=== PATIENT | male | born 2000 | race Caucasian/White ===

== ENCOUNTER → 2021-05-04 00:59 | Outpatient (CLI) | payer OTHER, SELFPAY ==
[2021-05-05 13:55] LABS: SARS-CoV-2 RNA PCR Negative
== END ==
PROVIDERS: Visit Provider Otolaryngology
DX: Z01.812 Encounter for preprocedural laboratory examination (principal); Z20.822 Contact with and (suspected) exposure to COVID-19
CPT/HCPCS: C9803; U0003; U0005

== ENCOUNTER 2021-05-07 00:20 | Day surgery (SDC) | payer OTHER, SELFPAY ==
[2021-04-27 15:58] VITALS: BMI 35.1
--- NOTE | 2021-04-27 16:13 | PC.NURSE ---
Report to the Outpatient Waiting Room, entrance under the green pavilion located off [facility], at time 0815 on date 05/07/21. OR Time: 1015. - You and your visitor will be asked a series of questions to screen for COVID 19 for your protection. - A mask is required within the hospital. - Only one visitor is allowed at this time. Patient visitors will be guided where to wait when not with patient. Preoperative COVID Testing Requirements: No COVID Test needed if: (proof is required; if not received patient will have Rapid Test prior to entry) - Patient has received COVID Vaccine at least 14 days prior to procedure date or - Patient has positive COVID test result within last 90 days of surgery date. COVID Test needed if above criteria is not met If not COVID vaccinated a COVID test must be conducted within 72 hours of surgery and patient is asked to isolate self from time of testing until procedure. You will go to the [facility] for your COVID testing. The [facility] is located at the corner of [address] [facility]. You will only be called if COVID results are positive and your surgeon may reschedule your elective surgery date. Patients may have clear liquids (water, carbonated beverages, clear teas, apple juice) until 3 hours prior to surgery with a maximum of 20 ounces. - No food from midnight until time of surgery - Infants may have breast milk until 4 hours before surgery, infant formula 6 hours prior to surgery. - Children will be allowed to drink immediately following surgery. If applicable, please bring a bottle or sippy cup to assist with drinking. Juice, water, soda, and popsicles are readily available. For infants on formula, please bring formula the day of surgery. Pacifiers are allowed. Take the following medications with a SIP of water the morning of surgery: risperidone Medications to discontinue per physician multivitamins Date to take last dose 05/04/2021 Please no make-up, nail divehi, hairspray, perfume, deodorant, or body powder the day of surgery. No jewelry (including any body piercings) or valuables the day of surgery, leave them at home. Please take a shower or bath the night before, or the morning of, surgery with an antibacterial soap. Wear comfortable, loose fitting clothing. Children are encouraged to wear pajamas. - Jewelry must be removed prior to entering the operating room. Rings and piercings that are not removed may be cut off. - The hospital will not accept responsibility for valuables. - Please leave all valuables, including medications, at home the day of surgery. If you are going home after surgery, a licensed laundry route driver must drive you home. - NO public transportation without another adult. - We recommend that an adult stay with you for 24 hours following discharge. - We also recommend that you do not drive, make important decision, drink alcoholic beverages, or take any drugs that were not prescribed by your health care provider for at least 24 hours after your discharge time. For Pediatric surgeries, we recommend two adults accompany the child home (only one inside the building at this time). Follow any additional instructions given to you from your surgeon. Telephone instructions given to Angélica(mom) and asked if any additional questions and then verbalized understanding. Patient advised to call surgeon office or pre surgery nurse liaison [phone] if any additional questions.
--- NOTE | 2021-05-05 06:41 | PM.HPGS ---
History of Present Illness History of Present Illness Consent: Risks, benefits, and alternatives have been discussed and questions answered. Patient agrees to proceed with procedure. Chief complaint: hypertrophic tonsils and adenoids Narrative: Kirill Croft is a 21 year old male with difficulty sleeping at night a positive sleep study enlarged tonsils and adenoids Review of Systems Review of Systems: All systems reviewed & are unremarkable except as noted in HPI and below PMFSH Social History Social History Smoking status: Never smoker Alcohol intake: never Substance use: never Spiritual care concerns: No Meds Home Medications and Allergies Home Medications Medication Instructions Recorded Confirmed Type multivitamin 1 tablet PO DAILY 03/19/21 04/27/21 History multivitamin with iron 1 tablet PO DAILY 03/19/21 04/27/21 History risperidone 2 mg tablet 2 mg PO BID 03/19/21 04/27/21 History Allergies Allergy/AdvReac Type Severity Reaction Status Date / Time No Known Allergies Allergy Verified 03/19/21 10:11 Exam Narrative: chest clear heart without murmurs abdomen soft enlarged tonsils Assessment and Plan Additional Plan plan tonsillectomy adenoidectomy
[2021-05-07] VITALS (7 sets, daily range): BP systolic 109–138; BP diastolic 76–88; PULSE 88–109; RESP 12–18; TEMP 36.4–36.6; O2SAT 97–100; BMI 33.7
--- NOTE | 2021-05-07 06:17 | WPDHPUPDATE1 ---
History and Physical Update Update Date/Time: 05/07/21 06:17 History and Physical has been reviewed, including an updated exam of the patient. There are NO changes in the patient's condition. Risks, benefits, and alternatives have been discussed and questions answered. Patient agrees to proceed with procedure.
--- NOTE | 2021-05-07 07:26 | WPDANESEPPF ---
Anes - Initial Pre Proc Eval Procedure: Operation Date: 05/07/21 08:45 Proposed Procedures p Tonsillectomy And Adenoidectomy - Jamison Gallegos MD Date/Time: 05/07/21 07:26 Surgeon: Jamison Gallegos MD Pre Op Diagnosis: hypertrophic tonsils and adenoids Patient Data Age: 21 Gender: M Height: 1.78 m Weight: 111 kg Allergies Allergy/AdvReac Type Severity Reaction Status Date / Time No Known Allergies Allergy Verified 03/19/21 10:11 Home Medications Medication Instructions Recorded Confirmed Type multivitamin 1 tablet PO DAILY 03/19/21 04/27/21 History multivitamin with iron 1 tablet PO DAILY 03/19/21 04/27/21 History risperidone 2 mg tablet 2 mg PO BID 03/19/21 04/27/21 History Patient hx anesthesia problems: none Family hx anesthesia problems: none Results Review: All pre-operative results and documents have been reviewed as part of the pre-operative evaluation. PMFSH Past Medical History Medical History Autism Sleep apnea Social History Social History Smoking status: Never smoker Alcohol intake: never Substance use: never Living arrangements: with family Spiritual care concerns: No Anes - Eval Final PreProcedure Day of Procedure 05/07/21 07:26 Patient weight: obese Heart: regular rate and rhythm Lungs: clear to auscultation Airway: Mallampati scale class III Neurological: other (alert) Last oral intake: >/= 8 hours ASA classification: III Emergent: no Anesthetic plan: proceed Anesthesia type and monitoring: general ETT and standard monitoring Results Review: All pre-operative results and documents have been reviewed as part of the pre-operative evaluation. Informed Consent: The patient's anesthetic plan and its attendant risks and benefits were discussed with the patient/family/POA. Questions were solicited and answers provided to the satisfaction of the patient/family/POA.
[2021-05-07] MEDS: LACTATED RINGERS 1,000 ML 30 ML IV CONT (07:45)
[2021-05-07] MEDS: ACETAMINOPHEN 500 MG TABLET 1000 MG PO (07:53)
--- NOTE | 2021-05-07 08:25 | W.PM.PROC2 ---
Procedure Note - Detailed Date of Procedure 05/07/21 Pre-op Diagnosis hypertrophic tonsils and adenoids Post-op Diagnosis same Procedure Performed TONSILLECTOMY/ADENOIDECTOMY SURGERY POSTOPERATIVE DISCHARGE INSTRUCTIONS DR. SAVAGE [facility] This is an information sheet to tell you some things to expect and some things not to expect when you leave the hospital after having Tonsillectomy/Adenoidectomy surgery. Please follow any specific instructions Dr. Savage has given you. 1. Diet You have received IV fluids during hospitalization, which will carry you through the next 24 to 48 hours. It should be no cause for alarm if you are not taking much liquid orally. Encourage yourself to drink liquids, but please avoid acidic liquids and hot liquids/food. Products such as orange juice or lemonade will sting and burn. Popsicles and cool liquids maybe better tolerated than thick liquids such as ice cream. Dairy product will have a tendency to make secretions thick. It is much more important that your child drink fluids than eat food. Do not be alarmed if you eat very little over the next several days. As long as you are drinking liquids, able to produce tears when crying and urinating, then adequate hydration is being maintained. Suggested foods are sherbet, Jell-O, broth, pudding, pureed vegetables, mashed potatoes..etc. No soda, potato chips, or any type of food that may scratch the throat is permitted. Do not expect to eat solid food for 7-8 days. As you begin to feel better, you may advance your diet as tolerated. 2. Nausea Nausea and vomiting can occur during the first evening as a result of having a general anesthetic. Giving pain medication or antibiotics on an empty stomach can make it worse. If you are not able to keep liquids down do not force them. Stop trying the liquids and try again in the morning. If you experience nausea and vomiting at that time, please call Dr. Savage. 3. Pain Typically patients report that the pain builds up for the first few days and is the worst around the 5th day following tonsillectomy. The amount of discomfort usually lessens, then may increase again around day 7-10 after surgery, as some of the whitish tissue covering the tonsillectomy site falls off. After this, there is generally steady improvement with less discomfort. Complete healing of the operative area generally takes several weeks. An ice collar or cold compress to the neck are soothing and may be desired. It is very common for the ears to hurt during the healing process. Ear pain, at times, may be severe. This ear pain is actually referred pain from the healing throat and is general not a result of an ear infection. If there is no drainage from Created 06/17 Rev. 05/18 Created 06/17 Rev. 05/18 Surgeon Jamison Savage MD Anesthesia general Description of Procedure Patient was prepped and draped in usual fashion after induction of anesthesia. The
--- NOTE | 2021-05-07 08:29 | W.PM.PROC2 ---
Procedure Note - Detailed Date of Procedure 05/07/21 Pre-op Diagnosis hypertrophic tonsils and adenoids Post-op Diagnosis same Procedure Performed Tonsillectomy Surgeon Jamison Gallegos MD Anesthesia general Description of Procedure Patient prepped and draped fashion anesthesia the McIvor mouth gag was inserted there was markedly enlarged tonsils removed dissection technique hemostasis obtained electrocautery with red rubber retraction of the palate laryngeal mirror the adenoids inspected minimal adenoids however the turbinates are markedly hypertrophic and the and blue in color these represented the hypertrophic inferior turbinates her nasal polyps
[2021-05-07] MEDS: fentaNYL CITRATE INJ (*CRX) 100 MCG/2 ML VIAL 25 MCG IV PUSH ×2 (08:42→08:48)
[2021-05-07] MEDS: oxyCODONE HCL (*CRX) 5 MG TAB IR PO (09:50)
== END 2021-05-07 09:55 | disposition home or self-care (01) ==
PROVIDERS: Visit Provider Otolaryngology
PROC: (CPT 42826; principal; 2021-05-07 08:45)
DX: J36 Peritonsillar abscess (principal); F84.0 Autistic disorder; G47.30 Sleep apnea, unspecified; E66.9 Obesity, unspecified; Z68.33 Body mass index [BMI] 33.0-33.9, adult
CPT/HCPCS: 42826; 88302; A9270; C9803; J0330; J1100; J2405; J2704; J3010; J7120; U0003; U0005

== ENCOUNTER 2021-05-11 01:00 | Day surgery (SDC) | payer OTHER, SELFPAY ==
[2021-05-11] VITALS (8 sets, daily range): BP systolic 96–127; BP diastolic 62–93; PULSE 104–146; RESP 18–22; TEMP 36.5; O2SAT 100
--- NOTE | 2021-05-11 01:17 | WPDCN ---
Assessment and Plan Assessment and plan (1) Post-tonsillectomy hemorrhage: Code(s): J95.830 - Postprocedural hemorrhage of a respiratory system organ or structure following a respiratory system procedure Status: Acute Assessment and Plan: Plan for OR, control of hemorrhage. Risks discussed in great detail including need for further procedure, and pain, as well as possible further bleeding. HPI Data of Consult Date/Time: 05/11/21 01:17 Primary Care Provider: UNKNOWN,DOCTOR Consult Narrative Narrative: Kirill Croft is a 21 year old male with autism, history of tonsillectomy 4 days ago. Bleeding 2 days ago, stopped spontaneously. Reports bleeding overnight. No labs. PMFSH Past Medical History Medical History Autism Sleep apnea Social History Social History Smoking status: Never smoker Alcohol intake: never Substance use: never Spiritual care concerns: No Meds Home Medications and Allergies Home Medications Medication Instructions Recorded Confirmed Type multivitamin 1 tablet PO DAILY 03/19/21 05/07/21 History multivitamin with iron 1 tablet PO DAILY 03/19/21 05/07/21 History risperidone 2 mg tablet 2 mg PO BID 03/19/21 05/07/21 History hydrocodone-acetaminophen 15 ml PO Q4H PRN #250 ml 05/07/21 Rx Allergies Allergy/AdvReac Type Severity Reaction Status Date / Time No Known Allergies Allergy Verified 05/07/21 07:30 Exam HENMT: Other: Clots through the oral cavity. Inferior right likely source, bright red.
--- NOTE | 2021-05-11 01:25 | ED.GENADULT ---
HPI - General Adult General Chief complaint: Unspecified Stated complaint: bleeding after tonsillectomy Time Seen by Provider: 05/11/21 01:22 History of Present Illness HPI narrative: Patient is a 21-year-old gentleman who presents the emergency department with chief complaint of tonsillectomy bleed. Patient reports that he had a tonsillectomy done by one of our local ENTs and this evening started having bleeding from his mouth. The patient called ENT and Dr. Dyson was aware of the patient. The patient presented to the emergency department and was also seen by ENT in the ER. Patient denies shortness of breath denies chest pain. Related Data Home Medications Medication Instructions Recorded Confirmed multivitamin 1 tablet PO DAILY 03/19/21 05/07/21 multivitamin with iron 1 tablet PO DAILY 03/19/21 05/07/21 risperidone 2 mg tablet 2 mg PO BID 03/19/21 05/07/21 Allergies Allergy/AdvReac Type Severity Reaction Status Date / Time No Known Allergies Allergy Verified 05/07/21 07:30 Review of Systems Review of Systems: A 10 system review of systems was completed on the patient and is negative except for what is stated in the HPI. Nursing and ancillary documentation was reviewed. PMFSH Past Medical History Medical History Autism Sleep apnea Social History Social History Smoking status: Never smoker Alcohol intake: never Substance use: never Spiritual care concerns: No Exam Narrative: GENERAL: Well-appearing, well-nourished, and in no acute distress. HEAD: Normocephalic, atraumatic. EYES: PERRLA and EOMI. ENT: Nares clear, no rhinorrhea or epistaxis. Dry membranes moist. NECK: Supple. CHEST: Clear to auscultation. No respiratory distress. HEART: Tachycardic rate and rhythm. No murmur heard. Normal peripheral pulses. ABDOMEN: Soft, nontender, nondistended, normal active bowel sounds. EXTREMITIES: Normal range of motion. No edema. SKIN: Warm, dry, no rash. NEURO: No focal deficits. Alert and oriented x3. PSYCH: Normal mood and affect. Discharge Plan Discharge Clinical Impression: Post-tonsillectomy hemorrhage Patient Disposition: Still a Patient Condition: Stable Prescriptions: No Action risperidone 2 mg tablet 2 mg PO BID RF: 0 multivitamin Tablet 1 tablet PO DAILY RF: 0 multivitamin with iron [Daily Multiple Vitamins/Iron] Tablet 1 tablet PO DAILY RF: 0 hydrocodone-acetaminophen 7.5-325 mg/15 mL solution 15 ml PO Q4H PRN (Reason: pain) Qty: 250 RF: 0 Follow-up/Referrals: UNKNOWN,DOCTOR [Primary Care Provider] - Time of Disposition: 01:28
--- NOTE | 2021-05-11 01:29 | P.HP_ITS ---
H&P: HPI History of Present Illness Date/Time: 05/11/21 01:29 History of post tonsillectomy hemorrhage. Plan for OR for control of hemorrhage. Chief Complaint: Post tonsillectomy hemorrhage. [facility] Past Medical History Medical History Autism Sleep apnea Social History Social History Smoking status: Never smoker Alcohol intake: never Substance use: never Spiritual care concerns: No Meds Home Medications and Allergies Home Medications Medication Instructions Recorded Confirmed Type multivitamin 1 tablet PO DAILY 03/19/21 05/07/21 History multivitamin with iron 1 tablet PO DAILY 03/19/21 05/07/21 History risperidone 2 mg tablet 2 mg PO BID 03/19/21 05/07/21 History hydrocodone-acetaminophen 15 ml PO Q4H PRN #250 ml 05/07/21 Rx Allergies Allergy/AdvReac Type Severity Reaction Status Date / Time No Known Allergies Allergy Verified 05/07/21 07:30 Assessment and Plan Assessment and plan (1) Post-tonsillectomy hemorrhage: Code(s): J95.830 - Postprocedural hemorrhage of a respiratory system organ or structure following a respiratory system procedure Status: Acute Assessment and Plan: Plan is for OR for control of hemorrhage. Risks and benefits discussed in great details.
[2021-05-11] MEDS: LACTATED RINGERS 1,000 ML 999 ML (01:56)
--- NOTE | 2021-05-11 02:03 | WPDANESEPP ---
Anes - Eval Pre Procedure Procedure: Operation Date: 05/11/21 02:30 Proposed Procedures p Post Op Tonsil Bleed - Azeem Dyson MD Date/Time: 05/11/21 02:03 Pre Op Diagnosis: bleeding after tonsillectomy Patient Data Age: 21 Gender: M Height: Weight: Allergies Allergy/AdvReac Type Severity Reaction Status Date / Time No Known Allergies Allergy Verified 05/07/21 07:30 Home Medications Medication Instructions Recorded Confirmed Type multivitamin 1 tablet PO DAILY 03/19/21 05/07/21 History multivitamin with iron 1 tablet PO DAILY 03/19/21 05/07/21 History risperidone 2 mg tablet 2 mg PO BID 03/19/21 05/07/21 History hydrocodone-acetaminophen 15 ml PO Q4H PRN #250 ml 05/07/21 Rx Patient hx anesthesia problems: none Family hx anesthesia problems: none Results Review: All pre-operative results and documents have been reviewed as part of the pre-operative evaluation. PMFSH Past Medical History Medical History Autism Sleep apnea Social History Social History Smoking status: Never smoker Alcohol intake: never Substance use: never Spiritual care concerns: No Exam Day of Procedure 05/11/21 02:03
--- NOTE | 2021-05-11 02:04 | WPDHPUPDATE1 ---
History and Physical Update Update Date/Time: 05/11/21 02:04 History and Physical has been reviewed, including an updated exam of the patient. There are NO changes in the patient's condition. Risks, benefits, and alternatives have been discussed and questions answered. Patient agrees to proceed with procedure.
[2021-05-11 02:07] LABS: Basophils Absolute Auto 0.1 K/mm3 (0.0-0.1); Basophils Percent Auto 0.4 % (0.2-1.2); Eosinophils Absolute Auto 0.1 K/mm3 (0-0.3); Eosinophils Percent Auto 0.4 % (0-4.4); Hematocrit 36.6 % (42.0-52.0); Hemoglobin 11.5 g/dL (14.0-18.0); Immature Granulocyte Absolute 0.28 K/mm3 (0.00-0.031); Immature Granulocyte Percent A 1.1 % (0-0.5); Lymphocytes Absolute Auto 2.47 K/mm3 (0.9-3.2); Lymphocytes Percent Auto 9.8 % (18.3-44.2); Mean Corpuscular HGB Conc 31.4 g/dl (32-36); Mean Corpuscular Hemoglobin 24.7 pg (26-34); Mean Corpuscular Volume 78.5 fl (80-100); Mean Platelet Volume 10.5 fl (7.4-10.4); Monocytes Absolute Auto 1.3 K/mm3 (0.1-0.6); Monocytes Percent Auto 5.3 % (2.6-8.5); Neutrophils Absolute Auto 20.9 K/mm3 (1.3-6.7); Platelet Count Result 374 k/mm3 (150-375); Red Blood Count 4.66 M/mm3 (4.6-6.20); Red Cell Distribution Width 17.3 % (11.5-14.5); White Blood Count 25.2 K/mm3 (4.5-10.0)
[2021-05-11] MEDS: LACTATED RINGERS 1,000 ML 30 ML IV CONT (02:30)
--- NOTE | 2021-05-11 03:29 | P.OP_ITS ---
Procedure Note - Detailed Date of Procedure 05/11/21 Pre-op Diagnosis Post tonsillectomy hemorrhage Post-op Diagnosis same Procedure Performed Control of hemorrhage Surgeon Azeem Dyson MD Anesthesia general Indications See above Findings Bleeding from the bilateral fossa right worse than left in terms of clot burden left was actually bleeding more briskly. Significant clot burden the patient's stomach suctioned with OG patient also vomited several times during the procedure airway secure no aspiration. Description of Procedure Patient correctly identified consent verified in preop patient brought to OR time-out performed. General anesthesia induced endotracheal tube secured the patient's airway with no difficulty. Patient prepped and draped. Second time- out performed. McIvor mouth gag inserted to reveal bilateral postoperative tonsillar fossa with the aforementioned findings noted clot suction to bleeding noted from the left small vessel right oozing inferiorly all this was controlled with suction Bovie electrocautery at setting of 15 patient would vomit several times after the area was secured copious amounts of clot suctioned out OG dropped copious amounts of clot suctioned out patient vomited again this was all suctioned the patient is stop vomiting before the airway was ever before the ET tube was ever removed. I performed all dictated portions of the procedure blood loss for my portion perhaps 5-20. Care the patient turned over to Anesthesiology. I performed all dictated portions of the procedure. Estimated Blood Loss 20 Drains No Packing No Pathology none sent Complications No immediate complications Condition stable Disposition PACU
[2021-05-11] MEDS: fentaNYL CITRATE INJ (*CRX) 100 MCG/2 ML VIAL 25 MCG IV PUSH ×2 (03:37→03:43)
== END 2021-05-11 04:52 | disposition home or self-care (01) ==
LOC: ANHED 01:35 → ANHSURGERY 01:36
PROVIDERS: Emergency Provider Emergency Medicine; Visit Provider Otolaryngology
PROC: (CPT 42960; principal; 2021-05-11 02:30)
DX: J95.830 Postprocedural hemorrhage of a respiratory system organ or structure following a respiratory system procedure (principal); Y83.8 Other surgical procedures as the cause of abnormal reaction of the patient, or of later complication, without mention of misadventure at the time of the procedure; F84.0 Autistic disorder; G47.30 Sleep apnea, unspecified
CPT/HCPCS: 42960; 36415; 85025; 99285; J0330; J1100; J2250; J2405; J2704; J3010; J7120

== ENCOUNTER 2021-11-12 09:51 | Outpatient (CLI) | payer BC, SELFPAY ==
--- NOTE | ~2021-11-12 | CT_ITS ---
EXAMINATION: CT sinus wo con DATE: 11/12/2021 10:10 INDICATION: Nasal polyps. Chronic sinusitis. Mild breathing. TECHNIQUE: Computed tomography (CT) of the paranasal sinuses was performed without contrast. Iterativ e reconstruction technique was employed. Exam dose: 308.46 mGy-cm total exam DLP. COMPARISON: None FINDINGS: There is rightward deviation of the nasal septum. There is very prominent soft tissue swell ing of the nasal turbinates bilaterally, especially the middle nasal turbinates, with extensive opaci fication of the middle meatus and complete opacification of both ostiomeatal units. There is complete opacification of the right frontal sinus, moderate patchy opacification of the left frontal sinus, extensive opacification of the ethmoid air cells and near opacification of the maxill cathy sinuses. There is virtually complete opacification of the sphenoid sinuses. The mastoid air cells are normally developed and aerated bilaterally. IMPRESSION: Complete opacification of the ostiomeatal units Prominent bilateral middle meatus opacification, severe soft tissue swelling of the nasal turbinates, especially the middle nasal turbinates Extensive opacification of the paranasal sinuses bilaterally Reviewed, dictated and finalized at [facility]. Reviewed, dictated and finalized at [facility].
== END 2021-11-12 09:52 | disposition home or self-care (01) ==
LOC: ANHIMG 09:52
PROVIDERS: Visit Provider Otolaryngology
DX: J30.9 Allergic rhinitis, unspecified (principal); J32.9 Chronic sinusitis, unspecified; J34.2 Deviated nasal septum; J33.9 Nasal polyp, unspecified; J34.3 Hypertrophy of nasal turbinates; J34.89 Other specified disorders of nose and nasal sinuses
CPT/HCPCS: 70486

== ENCOUNTER 2022-01-05 15:06 | Outpatient (CLI) | payer BC, SELFPAY ==
[2022-01-05 15:25] LABS: Hematocrit 46.8 % (40.0-54.0); Hemoglobin 15.5 g/dL (14.0-18.0)
== END 2022-01-05 15:07 | disposition home or self-care (01) ==
LOC: CHSLAB 15:10
PROVIDERS: Visit Provider Anesthesiology
DX: D64.9 Anemia, unspecified (principal)
CPT/HCPCS: 36415; 85014; 85018

== ENCOUNTER 2022-01-08 00:48 | Day surgery (SDC) | payer BC, SELFPAY ==
[2022-01-01 13:37] VITALS: BMI 32.8
--- NOTE | 2022-01-01 13:45 | PC.NURSE ---
Report to the Outpatient Waiting Room, entrance under the green pavilion located off [facility], at time 0615_ on date 01/08/22_. OR Time: 0815_. - You and your visitor will be asked to self-screen and do not enter if you have any COVID symptoms. - Only one visitor and NO children visitors are allowed at this time. - The patient visitor is requested to leave or wait in car when not with patient due to restrictions. - A mask is required within the hospital. Patients may have clear liquids (water, carbonated beverages, clear teas, apple juice) until 3 hours prior to surgery with a maximum of 20 ounces. - No food from midnight until time of surgery - Infants may have breast milk until 4 hours before surgery, formula 6 hours prior to surgery. - Children will be allowed to drink immediately following surgery. If applicable, please bring a bottle or sippy cup to assist with drinking. Juice, water, soda, and popsicles are readily available. For infants on formula, please bring formula the day of surgery. Pacifiers are allowed. Take the following medications with a SIP of water the morning of surgery: ___PREDNISONE, RISPERIDOL Medications to discontinue per physician VITAMIN, IRON Date to take last dose 01/05/22 Please no make-up, nail turkish, hairspray, perfume, deodorant, or body powder the day of surgery. No jewelry (including any body piercings) or valuables the day of surgery, leave them at home. Please take a shower or bath the night before, or the morning of, surgery with an antibacterial soap. Wear comfortable, loose fitting clothing. Children are encouraged to wear pajamas. - Jewelry must be removed prior to entering the operating room. Rings and piercings that are not removed may be cut off. - The hospital will not accept responsibility for valuables. - Please leave all valuables, including medications, at home the day of surgery. If you are going home after surgery, a licensed national van truck driver must drive you home. - NO public transportation without another adult. - We recommend that an adult stay with you for 24 hours following discharge. - We also recommend that you do not drive, make important decision, drink alcoholic beverages, or take any drugs that were not prescribed by your health care provider for at least 24 hours after your discharge time. For Pediatric surgeries, we recommend two adults accompany the child home (only one inside the building at this time). Follow any additional instructions given to you from your surgeon. If you or anyone in your household have experienced Covid symptoms in the past week, please notify your surgeon or the nurse liaison at the phone number below for possible testing. Telephone instructions given to __MOTHER__and asked if any additional questions and then verbalized understanding. Patient advised to call surgeon office or pre surgery nurse liaison [phone] if any additional questions.
--- NOTE | 2022-01-01 13:56 | PC.NURSE ---
MOTHER STATES PT CURRENTLY TAKING ANTIBIOTICS FOR WISDOM TOOTH INFECTION, LAST DOSE 01/02/22. STATES SHE SPOKE WITH DR. CARLTON OFFICE, HE IS AWARE AND OK TO PROCEED.
--- NOTE | 2022-01-07 07:41 | PM.IMHP ---
H&P: HPI History of Present Illness Date/Time: 01/07/22 07:41 Chief Complaint: Nasal obstruction nasal congestion septal per septal deviation turbinate hypertrophy nasal polyps chronic sinusitis Narrative: planned surgical procedure Review of Systems Review of Systems: All systems reviewed & are unremarkable except as noted in HPI and below PMFSH Past Medical History Medical History Autism Sleep apnea Social History Social History Smoking status: Never smoker Second hand tobacco smoke exposure: No Alcohol intake: never Substance use: never Spiritual care concerns: No Meds Home Medications and Allergies Home Medications Medication Instructions Recorded Confirmed Type multivitamin with iron (Daily 1 tablet PO DAILY 03/19/21 01/01/22 History Multiple Vitamins with Iron tablet) risperidone 2 mg tablet 2 mg PO BID 03/19/21 01/01/22 History fluticasone propionate 93 See Rx Instructions .Route 12/28/21 01/01/22 Rx mcg/actuation breath activated .COMPLEX #16 grams aerosol (Xhance) prednisone 10 mg tablet 10 mg PO DAILY #7 tabs 12/31/21 01/01/22 Rx cetirizine 10 mg capsule (Zyrtec) 10 mg PO DAILY 01/01/22 01/01/22 History ferrous sulfate 325 mg (65 mg 325 mg PO DAILY 01/01/22 01/01/22 History iron) tablet Allergies Allergy/AdvReac Type Severity Reaction Status Date / Time No Known Allergies Allergy Verified 01/01/22 13:34 Exam Narrative: normal ENT exam septal deviation turbinate hypertrophy nasal polyps all obviously visible Assessment and Plan Assessment and plan (1) Chronic sinusitis: Code(s): J32.9 - Chronic sinusitis, unspecified Status: Acute Assessment and Plan: plan OR for image guided bilateral maxillary antrostomies with tissue removal total ethmoidectomies frontal sinusotomies sphenoidotomies, endoscopic assisted septoplasty, inferior turbinate submucosal reduction with outfracture.? risks discussed including bleeding infection damage to surrounding structures CSF leak brain damage brain blindness change in vision septal perforation failure to resolve symptoms need for aggressive and/or prolonged medical treatment for the aggressive nasal polyps. Potential need for referral to Allergy immunology for Dupixent if patient fails. Mother voiced understanding and agreed. (2) Nasal polyps: Code(s): J33.9 - Nasal polyp, unspecified Status: Acute (3) Hypertrophy of both inferior nasal turbinates: Code(s): J34.3 - Hypertrophy of nasal turbinates Status: Acute (4) Nasal septal deviation: Code(s): J34.2 - Deviated nasal septum Status: Acute (5) Multiple nasal polyps: Code(s): J33.9 - Nasal polyp, unspecified Status: Acute
[2022-01-08] VITALS (7 sets, daily range): BP systolic 129–153; BP diastolic 85–100; PULSE 88–101; RESP 16–20; TEMP 36.4–36.5; O2SAT 99–100
[2022-01-08] MEDS: ACETAMINOPHEN 500 MG TABLET 1000 MG PO (06:49)
[2022-01-08] MEDS: LACTATED RINGERS 1,000 ML 30 ML IV CONT ×2 (07:06→12:24)
--- NOTE | 2022-01-08 07:09 | WPDHPUPDATE1 ---
History and Physical Update Update Date/Time: 01/08/22 07:09 History and Physical has been reviewed, including an updated exam of the patient. There are NO changes in the patient's condition. Risks, benefits, and alternatives have been discussed and questions answered. Patient agrees to proceed with procedure.
--- NOTE | 2022-01-08 07:26 | WPDANESEPPF ---
Anes - Initial Pre Proc Eval Procedure: Operation Date: 01/08/22 08:15 Proposed Procedures p Image Guided Bilateral Maxillary Antrostomy with Tissue Removal, Total Ethmoidectomy, Frontal Sinusotomy, Bilateral Sphenoidotomy, Bilateral Inferior Turbinectomy with Outfracture - Azeem Dyson MD s Endoscopic Septoplasty - Azeem Dyson MD Date/Time: 01/08/22 07:26 Surgeon: Azeem Dyson MD Pre Op Diagnosis: chronic sinusitis Patient Data Age: 21 Gender: M Height: 1.83 m Weight: 110 kg Last Vital Signs Temp 36.4 C 01/08/22 07:06 Pulse 90 01/08/22 07:06 Resp 16 01/08/22 07:06 BP 129/91 H 01/08/22 07:06 Pulse Ox 100 01/08/22 07:06 O2 Del Method Room Air 01/08/22 07:06 Allergies Allergy/AdvReac Type Severity Reaction Status Date / Time No Known Allergies Allergy Verified 01/08/22 06:43 Home Medications Medication Instructions Recorded Confirmed Type multivitamin with iron (Daily 1 tablet PO DAILY 03/19/21 01/08/22 History Multiple Vitamins with Iron tablet) risperidone 2 mg tablet 2 mg PO BID 03/19/21 01/08/22 History fluticasone propionate 93 See Rx Instructions .Route 12/28/21 01/08/22 Rx mcg/actuation breath activated .COMPLEX #16 grams aerosol (Xhance) cetirizine 10 mg capsule (Zyrtec) 10 mg PO DAILY 01/01/22 01/08/22 History ferrous sulfate 325 mg (65 mg 325 mg PO DAILY 01/01/22 01/08/22 History iron) tablet prednisone 10 mg tablet 10 mg PO DAILY #2 tabs 01/07/22 Rx amoxicillin 500 mg capsule mg 01/08/22 History Patient hx anesthesia problems: none Family hx anesthesia problems: none Results Review: All pre-operative results and documents have been reviewed as part of the pre-operative evaluation. [facility] Past Medical History Medical History Autism Sleep apnea Surgical History Surgical History (Updated 01/08/22 @ 07:26 by Dagoberto Hernandez MD) H/O adenoidectomy Social History Social History Smoking status: Never smoker Second hand tobacco smoke exposure: No Alcohol intake: never Substance use: never Living arrangements: with family Spiritual care concerns: No Anes - Eval Final PreProcedure Day of Procedure 01/08/22 07:26 Patient weight: obese Heart: regular rate and rhythm Lungs: clear to auscultation Airway: Mallampati scale class III Neurological: alert and oriented Last oral intake: >/= 8 hours ASA classification: III Emergent: no Anesthetic plan: proceed Anesthesia type and monitoring: general ETT and standard monitoring Results Review: All pre-operative results and documents have been reviewed as part of the pre-operative evaluation. Informed Consent: The patient's anesthetic plan and its attendant risks and benefits were discussed with the patient/family/POA. Questions were solicited and answers provided to the satisfaction of the patient/family/POA.
[2022-01-08] MEDS: ceFAZolin 2 GM/D5W 50 ML 2 GM/50 ML BAG IVPB (07:59)
[2022-01-08] MEDS: OXYMETAZOLINE HCL 0.05% NAS 15 ML BTL (*BKC) 1 SPRAY NASAL ×2 (08:16→11:13)
[2022-01-08] MEDS: MUPIROCIN 2% OINT 22 GM TUBE 1 APPLIC EACH NARE (10:54)
[2022-01-08] MEDS: LIDO 1%/EPINEPHRINE 1:100,000 10 ML VIAL 20 ML INFILTRATE (12:00)
--- NOTE | 2022-01-08 12:37 | P.OP_ITS ---
Procedure Note - Detailed Date of Procedure 01/08/22 Pre-op Diagnosis chronic sinusitis, nasal polyps, septal deviation, turbinate hypertrophy, nasal obstruction, nasal congestion Post-op Diagnosis Same Procedure Performed Bilateral image guided endoscopic maxillary antrostomies with tissue removal total ethmoidectomies sphenoidotomies both tissue room endoscopic assisted septoplasty nasal polypectomy bilateral middle turbinectomies submucosal inferior turbinate reductions without fractures Surgeon Azeem Dyson MD Anesthesia General Indications See above Findings Polyps excess bleeding unable to perform the frontal sinusotomies because the obstructive bleeding. Septum was severely deviated no concomitant perforations adequate hemostasis at the end the case. Description of Procedure Patient identified consent verified. Patient brought operating room. Time-out performed. General anesthesia induced. Endotracheal tube secured airway taped left lower lip. Patient prepped and draped 2nd time-out performed. Image guidance initiated and confirmed. Afrin-soaked pledgets placed in bilateral nasal passages allowed to sit for 5 minutes. Afrin-soaked pledgets removed image guidance utilized throughout the procedure 10 cc 1% local 1 100,000 parts epinephrine epinephrine injected deep into the submucoperichondrial plane of the nasal septum. Aly incision made on the left side. Left nasal septal flap elevated with 7 Spanish suction. Osteotome utilized crust over right-sided nasal septal flap elevated with small perforation. The entire mucosa was incredibly edematous and boggy polyps were located throughout. Polypectomy performed with microdebrider with image guidance. Maxillary antrostomies performed with double ball tip probe backbiter straight through cut and suction copious amounts of fungal debris and purulence were located within total ethmoidectomies performed with image guidance Kerrison Kerrison micro debrider utilized to perform the total ethmoidectomies again fungal debris and purulence located within these air cells. Bleeding along the skull base limited my ability to frontal sinusotomies. The intermittent application of Afrin-soaked pledget we utilized throughout the procedure. Sphenoidotomies performed with image guidance caudal/Skytop 1 Kerrison punch 3 Kerrison punch and sinus sphenoid sinus punch copious amounts of fungal debris and purulence located the bite lateral sphenoid sinuses. Inferior turbinates then reduced in the sub mucosal plane and outfractured with Philadelphia elevator outfractured using Philadelphia elevator. Total blood loss about 500 cc. The middle turbinates removed prior to sinus surgery stumps cauterized with Bovie suction electrocautery. This was done for access and they were completely full of polyps. Garcia splints were then placed Guthrie incision closed with 3 interrupted 5 0 fast gut sutures. Garcia splints were then placed sutured anteriorly using a mattress 3-0 nylon suture. Patient had excess bleeding total of about 500 cc with the bleeding was well controlled and hemostasis was adequate at the end of the case I performed all dictated portions of the procedure. Care the patient given Anesthesiology. Patient taken to PACU without complication. Estimated Blood Loss -500.0 Drains No Packing Yes Pathology None sent Complications No immediate complications Condition Stable Disposition PACU
--- NOTE | 2022-01-08 13:54 | SUR.PHASEII ---
DR. LANE CALLED RE: TAKING BOTH ANTIBIOTICS OR NOT; INSTRUCTED PATIENT TO TAKE BOTH.
== END 2022-01-08 13:53 | disposition home or self-care (01) ==
PROVIDERS: Visit Provider Otolaryngology
PROC: (CPT 31267; principal; 2022-01-08 08:15)
PROC: (CPT 30520; 2022-01-08 08:15)
DX: J32.9 Chronic sinusitis, unspecified (principal); J33.9 Nasal polyp, unspecified; J34.3 Hypertrophy of nasal turbinates; J34.2 Deviated nasal septum; R09.81 Nasal congestion; F84.0 Autistic disorder; G47.30 Sleep apnea, unspecified
CPT/HCPCS: 31267; 61782; 30520; 30999; 31257; A9270; J0330; J0690; J1100; J1170; J2250; J2405; J2704; J2765; J3010; J7120

== ENCOUNTER 2022-09-04 09:11 | Emergency (ER) | payer BC, SELFPAY ==
[2022-09-04 09:11] VITALS: BP 148/91; PULSE 120; RESP 20; TEMP 36; O2SAT 97
[2022-09-04 09:22] VITALS: BP 148/91; PULSE 120; RESP 20; TEMP 36; O2SAT 97
--- NOTE | 2022-09-04 09:28 | ED.GENADULT ---
HPI - General Adult General Chief complaint: Eye Problems Stated complaint: left eye irritation Time Seen by Provider: 09/04/22 09:22 History of Present Illness HPI narrative: This is a 22-year-old male with autism presenting to ED with a red painful eye. Symptoms started 4 days ago. Mother has been treating it with a salad that she had from a previous eye infection. She saw her primary care physician yesterday and he was given Ocuflox. However the patient's eye is still red and inflamed and painful. Patient has autism and is not able to contribute meaningfully to the interview. Patient does not wear antibiotics Related Data Home Medications Medication Instructions Recorded Confirmed multivitamin with iron (Daily 1 tablet PO DAILY 03/19/21 09/04/22 Multiple Vitamins with Iron tablet) risperidone 2 mg tablet 2 mg PO BID 03/19/21 09/04/22 cetirizine 10 mg capsule (Zyrtec) 10 mg PO DAILY 01/01/22 09/04/22 ferrous sulfate 325 mg (65 mg 325 mg PO DAILY 01/01/22 09/04/22 iron) tablet ciprofloxacin HCl 0.3 % eye drops 2 drp LEFT EYE QID 09/04/22 09/04/22 Allergies Allergy/AdvReac Type Severity Reaction Status Date / Time No Known Allergies Allergy Verified 09/04/22 09:20 [facility] Past Medical History Medical History Autism Sleep apnea Surgical History Surgical History H/O adenoidectomy Social History Social History Smoking status: Never smoker Second hand tobacco smoke exposure: No Alcohol intake: never Substance use: never Lack of Transportation: YES Lack of Food: Never True Current Housing: I Have Housing Concerned About Future Housing: No Difficulty Paying Gas/Electric Bills: No Difficulty Paying for Meds: No Currently Unemployed: No Education: High School Diploma/GED Difficulty w/ Childcare or Family Care: No Living arrangements: with family Spiritual care concerns: No Exam Narrative: APPEARANCE: Patient appears uncomfortable Head: atraumatic. NOSE: Atraumatic NECK: Trachea midline RESPIRATORY: No increased rate of breathing CARDIOVASCULAR: RRR, ABDOMINAL: Non-distended MUSCULOSKELETAl: No obvious deformities NEURO: Alert. Moving 4/4 extremities SKIN:: Warm, dry. Normal color PSYCHIATRIC: Normal affect eye exam: Left eye has significant conjunctival injection. Unable to assess visual acuity due to autism. IOP: L17 R20 Fluerscein stain: Left eye has a corneal over the upper half of the cornea. Course Vital Signs Vital signs: Vital Signs Temperature 96.8 F L 09/04/22 09:11 Pulse Rate 120 H 09/04/22 09:11 Respiratory Rate 20 09/04/22 09:11 Blood Pressure 148/91 H 09/04/22 09:11 Pulse Oximetry 97 09/04/22 09:11 Oxygen Delivery Room Air 09/04/22 09:11 Temperature 96.8 F L 09/04/22 09:22 Pulse Rate 120 H 09/04/22 09:22 Respiratory Rate 20 09/04/22 09:22 Blood Pressure 148/91 H 09/04/22 09:22 Pulse Oximetry 97 09/04/22 09:22 Oxygen Delivery Room Air 09/04/22 09:22 Medical Decision Making [facility] Narrative Medical decision making narrative: -Presentation: 22-year-old autistic male presenting with a red painful eye. -DDX includes but is not limited to: corneal abrasion, corneal ulceration, allergic conjunctivitis. -Co-morbidities complicating care: autism, allergies -Social determinants of health: patient is disabled, lives with his mother -External Chart Review: none -Hx from independent Sources: mother @ bedside -Discussion of Management/Consultants: none -Independent interpretation of studies: eye exam revealed a large corneal abrasion. Rest his eye exam was unremarkable. Unable to test visual acuity due to autism/developmental delay Dx tests considered but not ordered: none -Procedures: none -Interventions: Rosita Smyth
[2022-09-04] MEDS: TETRACAINE HCL 0.5% OPHTH SOLN 4 ML BTL 1 DROP EACH EYE (09:29)
[2022-09-04] MEDS: FLUORESCEIN SOD 1 MG/STRIP EACH EYE (09:30)
[2022-09-04] MEDS: ACETAMINOPHEN 500 MG TABLET 1000 MG PO (09:46)
[2022-09-04] MEDS: IBUPROFEN 400 MG TABLET 800 MG PO (09:47)
== END 2022-09-04 09:55 | disposition home or self-care (01) ==
LOC: CHSED 09:59
PROVIDERS: Emergency Provider Emergency Medicine
DX: S05.00XA Injury of conjunctiva and corneal abrasion without foreign body, unspecified eye, initial encounter (principal); H10.10 Acute atopic conjunctivitis, unspecified eye; X58.XXXA Exposure to other specified factors, initial encounter
CPT/HCPCS: 99283; A9270

== ENCOUNTER 2022-09-16 14:21 | Outpatient (CLI) | payer BC, SELFPAY ==
[2022-09-16 15:00] LABS: Basophils Absolute Auto 0.06 K/mm3 (0.00-0.10); Basophils Percent Auto 0.5 % (0.0-1.0); Eosinophils Absolute Auto 0.15 K/mm3 (0.02-0.50); Eosinophils Percent Auto 1.2 % (1.0-6.0); Hematocrit 45.7 % (40.0-54.0); Immature Granulocyte Absolute 0.08 K/mm3 (0.00-0.00); Immature Granulocyte Percent A 0.6 % (0.0-0.0); Lymphocytes Absolute Auto 2.26 K/mm3 (1.10-4.50); Lymphocytes Percent Auto 17.7 % (18.0-42.0); Mean Corpuscular HGB Conc 32.8 g/dL (32.0-36.0); Mean Corpuscular Hemoglobin 28.5 pg (27.0-31.0); Mean Corpuscular Volume 86.9 fL (78.0-102.0); Mean Platelet Volume 10.5 fl (8.7-11.0); Monocytes Absolute Auto 0.82 K/mm3 (0.10-0.90); Monocytes Percent Auto 6.4 % (2.0-11.0); Neutrophils Absolute Auto 9.4 K/mm3 (1.7-7.2); Neutrophils Percent Auto 73.6 % (50.0-70.0); Platelet Count Result 267 K/mm3 (150-420); Red Blood Count 5.26 M/mm3 (4.70-6.10); Red Cell Distribution Width 13.3 % (11.6-14.4); White Blood Count 12.8 K/mm3 (4.8-10.8)
[2022-09-16 15:50] LABS: Alanine Aminotransferase 29 U/L (16-63); Albumin Level 3.9 g/dL (3.4-5.0); Alkaline Phosphatase 124 U/L (46-116); Anion Gap 10 mmol/L (8-16); Aspartate Amino Transferase 14 U/L (15-37); Bilirubin,Total 0.2 mg/dL (0.00-1.00); Blood Urea Nitrogen 7 mg/dL (7-18); Calcium 9.9 mg/dL (8.5-10.1); Carbon Dioxide 28 mmol/L (21-32); Chloride 101 mmol/L (98-108); Estimated Glomerular Filt Rate > 60; Glucose 80 mg/dL (70-99); Iron 35 ug/dL (65-175); Osmolality Calculated 285 mOsm/kg (285-295); Percent Iron Saturation 11 % (12-57); Potassium 3.9 mmol/L (3.5-5.1); Sodium 139 mmol/L (136-145); Total Protein 8.2 g/dL (6.4-8.2)
== END 2022-09-16 14:22 | disposition home or self-care (01) ==
LOC: CHSLAB 14:25
DX: D50.8 Other iron deficiency anemias (principal); G47.34 Idiopathic sleep related nonobstructive alveolar hypoventilation
CPT/HCPCS: 36415; 80053; 83540; 83550; 85025

== ENCOUNTER 2024-09-15 09:39 | Outpatient (CLI) | payer OTHER, SELFPAY ==
--- OUTSIDE RECORDS SUMMARY | 2024-09-15 09:45 | XMS_ITS | Continuity of Care Document ---
Author Organization [facility] Address [address] [place] [address] Care Team Providers Care Receivable Executive Name Role Phone Naman Villatoro Primary Care Physician [phone] Encounter [facility] [id number] Date(s): 09/14/24 - 09/14/24 [facility] [address] [phone] - Encounter Diagnosis Annual physical examination for person with mental illness completed(Discharge Diagnosis) - 09/14/24 Atypical autism(Discharge Diagnosis) - 09/14/24 Iron deficiency anemia(Discharge Diagnosis) - 09/14/24 Morbid obesity(Discharge Diagnosis) - 09/14/24 Autism spectrum disorder(Discharge Diagnosis) - 09/14/24 Sleep related hypoventilation or hypoxemia(Discharge Diagnosis) - 09/14/24 Allergic rhinitis caused by pollen(Discharge Diagnosis) - 09/14/24 Obstructive sleep apnea syndrome(Discharge Diagnosis) - 09/14/24 Discharge Disposition: Home or Self Care Attending Physician: Naman Villatoro MD Referring Physician: Naman Villatoro MD Encounter Type: Clinic Allergies, Adverse Reactions, Alerts No Known Allergies Assessment and Plan Future Scheduled Tests Laboratory* CBC w/ Diff 09/14/24 * Comprehensive Metabolic Panel 09/14/24 * Lipid Panel 09/14/24 * TSH 09/14/24 * Free T4 09/14/24 * Iron Panel 09/14/24 Medications risperiDONE 1 mg oral tablet See Instructions, TAKE 1 TABLET BY MOUTH DAILY IN THE MORNING WITH 2MG TABLET AND 1 TABLET IN THE AFTERNOON WITH 2MG TABLET FOR A TOTAL OF 3MG TWICE DAILY, # 60 tab, 0 Refill(s), Pharmacy: [facility] Start Date: 07/09/24 Status: Ordered Quantity: 60.0 Unit: Repeat number: 1 risperiDONE 2 mg oral tablet = 1 tab, Oral, BID, # 60 tab, 5 Refill(s), Pharmacy: [facility] Start Date: 09/03/24 Status: Ordered Quantity: 60.0 Unit: Repeat number: 6 Problem List Condition Confirmation Course Effective Dates Status H ealth Status Informant Allergic rhinitis caused by pollen 1 Confirmed 04/03/23 Active Atypical autism 2 Confirmed 08/28/10 Active Autism spectrum disorder 3 Confirmed 08/28/10 Active Iron deficiency anemia 4 Confirmed 04/03/23 Active Morbid obesity Confirmed Active Obstructive sleep apnea syndrome 5 Confirmed 03/02/21 Active Sleep related hypoventilation or hypoxemia 6 Confirmed 03/02/21 Active 1Outside Source Comment: Note: Unchanged 2Outside Source Comment: Note: Unchanged 3Outside Source Comment: Note: Unchanged 4Outside Source Comment: Note: Unchanged 5Outside Source Comment: Note: Unchanged 6Outside Source Comment: Note: Unchanged Diagnosis Diagnosis Type Effective Dates Health Status Clinical Service Informant Iron deficiency anemia Discharge Diagnosis 09/14/24 Autism spectrum disorder Discharge Diagnosis 09/14/24 Sleep related hypoventilation or hypoxemia Discharge Diagnosis 09/14/24 Obstructive sleep apnea syndrome Discharge Diagnosis 09/14/24 Annual physical examination for person with mental illness completed Discharge Diagnosis 09/14/24 Atypical autism Discharge Diagnosis 09/14/24 Morbid obesity Discharge Diagnosis 09/14/24 Allergic rhinitis caused by pollen Discharge Diagnosis 09/14/24 Vital Signs Most recent to oldest [Reference Range]: 1 2 Peripheral Pulse Rate [60-100 bpm] 96 bp m (09/14/24 11:05 AM) Blood Pressure [90-120/60-80 mmHg] 132/9 4mmHg *HI* (09/14/24 11:38 AM) 140/100mmHg *HI* (09/14/24 11:05 AM) Mean Arterial Pressure, Cuff [70-110 mmH g] 107 mmHg (09/14/24 11:38 AM) 113 mmHg *HI* (09/14/24 11:05 AM) Social History Social History Type Response Sex Male Sex Representation Male (finding) Patient Care team information Care Team Personnel Name: Naman Villatoro MD Position: Physician Member Role: Informed Provider Address: [address] [place] [address] Telecom: Insurance Providers Guarantor name: Health Plan Information #: 1 Payer: [employer] Member Number: [id number] Policy Number: NA Group Number: [id number] Payer Identifier: ERICA Health Plan Information #: 2 Payer: [employer] Member Number: [id number] Policy Number: NA Group Number: [id number] Payer Identifier: NA
--- OUTSIDE RECORDS SUMMARY | 2024-09-15 09:45 | XMS_ITS | Clinical Summary ---
Author Organization [facility] [address] Address [address] [facility] [place] [address] Care Team Providers Care Parking Manager Name Role Phone Payam Navarro DO Primary Care Provider [phone] Allergies No known active allergies Medications cholecalciferol, Vitamin D3, (VITAMIN D3) 1,000 unit Capsule Take by mouth daily. Active ascorbic acid, vitamin C, (VITAMIN C) 100 mg Tablet Take 100 mg by mouth daily. Active risperiDONE (RisperDAL) 2 mg tablet TAKE 1 TABLET BY MOUTH TWICE DAILY 60 Tablet 5 01/31/2019 Active Active Problems Problem Noted Date Diagnosed Date Environmental tobacco smoke exposure 12/30/2015 Autistic disorder 12/29/2015 Immunizations Immunization Administration Dates Next Due (INFANRIX)(6 WKS-6 YRS) DIPT HERIA, TETANUS TOXOIDS, AND ACCELLULAR PERTUSSIS VACCINE (DTAP), 0.5 ML IM 02/13/2004,11/26/1999,1998,1998,1998 (IPOL)(6 WKS AND UP) POLIOVI EVA VACCINE, INACTIVATED (IPV), 3 DOSE, SUBCUT OR IM 1998,1998,1998,1998 (M-M-R II/PRIORIX)(12 MO UP) MEASLES, MUMPS AND RUBELLA VIRUS VACCINE, 0.5 ML IM/SUBCUT 02/13/2004,06/19/1999 (VARIVAX)(12 MOS UP)VARICELL A VIRUS VACCINE (PF) 0.5 ML, SUB CUT 10/11/2002 HIB, Unspecified Formulation 11/26/1999, 1998,1998,1998 Hepatitis B Vaccine 1998,1998,1997 Poliovirus Vaccine Live Oral 02/13/2004 Family History Medical History Relation Name Comments Colon Cancer Neg Hx Social History Tobacco Use Types Packs/Day Years Used Date Smoking Tobacco: Passive Smo ke Exposure - Never Smoker Smokeless Tobacco: Never Alcohol Use Standard Drinks/Week Comments No 0 (1 standard drink = 0.6 oz pur e alcohol) Sex and Gender Information Value Date Recorded Sex Assigned at Not on file Legal Sex Male 3:50 PM CDT Gender Identity Not on file Sexual Orientation Not on file Last Filed Vital Signs Vital Sign Reading Time Taken Comments Blood Pressure 120/83 08/07/2018 4:27 PM CDT Pulse 112 08/07/2018 4:27 PM CDT Temperature 35.9 C (96.7 F) 02/14/2018 4:46 PM CDT Respiratory Rate 24 08/07/2018 4:27 PM CDT Oxygen Saturation 97% 08/07/2018 4:27 PM CDT Inhaled Oxygen Concentration - - Weight 91.6 kg (202 lb) 08/07/2018 4:27 PM CDT Height 174 cm (5' 8.5 ) 08/07/2018 4:27 PM CDT Body Mass Index 30.27 08/07/2018 4:27 PM CDT Plan of Treatment Health Maintenance Due Date Last Done Comments HPV VACCINES (1 - Male 3-dos e series) 2013 DTAP/TDAP/TD VACCINES (7 - T d or Tdap) 03/02/2023 03/02/2013, 02/13/2004, 11/26/1999, Additional history exists INFLUENZA VACCINE (#1) 2023 05/14/2015 Preventative Visit- Commercial 05/02/2024 HEPATITIS B VACCINES Completed 1998, 1998, 1998 Insurance [facility] [id number] Care Teams Parking Manager Relationship Specialty Start Date End Date Payam Navarro DO [address] [place] [address] [place] [id number] PCP - General Family Practice 12/29/15
--- OUTSIDE RECORDS SUMMARY | 2024-09-15 09:45 | XMS_ITS | Clinical Summary ---
Author Organization [facility] Address [address] [place] [address] Care Team Providers Care Drum Operator Name Role Phone Naman Villatoro MD Primary Care Provider Source Comments [facility],non-owned Affiliates and Associated Physician Practices is amultiple site organization consisting of ambulatory clinics and hospital sitesin [place], [place], [place] and [place]. This disclosure is being madepursuant to the Care Everywhere program and may not contain all information available regarding this patient. Last updated 18.[facility] Allergies No known active allergies Medications * This document contains information received from the source organization and may not represent a complete record from that organization. * Be aware that medications may not be up to date on this document. Alwaysverify current medications with the patient. 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 Due to his size and aggressive behaviors his family no longer feels comfortable caring for him. Vivian requires residential placement in a facility equipped to meet his needs. Inbound Call Center Agent is involved and their input is appreciated. He continues to do well from a medical standpoint. Plan: - Will d/c to residential facility today Assessment & Plan (05/14/2015 7:47 AM RAMP SERVICE AGENT): Assessment: Vivian is admitted due to increased aggression at home. Due to his size and aggressive behaviors his family no longer feels comfortable caring for him. Vivian requires residential placement in a facility equipped to meet his needs. He does not meet criteria for inpatient psychiatric admission. Inbound Call Center Agent is involved and their input is appreciated. He otherwise continues to do well from a medical standpoint. All issues are behavioral and not appropriately dealt with by inpatient medical admission. Plan: - Await word on placement opportunities - Attending physician Dr Menendez has reached out to hospital administration for assistance as Vivian has no need of medical admission but identification of an appropriate facility has been difficult Assessment & Plan (05/13/2015 10:27 AM RAMP SERVICE AGENT): Assessment: Vivian is admitted due to increased aggression at home. Due to his size and aggressive behaviors his family no longer feels comfortable caring for him. Vivian requires residential placement in a facility equipped to meet his needs. He does not meet criteria for inpatient psychiatric admission. Inbound Call Center Agent is involved and their input is appreciated. He otherwise continues to do well from a medical standpoint. All issues are behavioral and not appropriately dealt with by inpatient medical admission. Plan: - Await word on placement opportunities - Attending physician Dr Menendez has reached out to hospital administration for assistance as Vivian has no need of medical admission but identification of an appropriate facility has been difficult Assessment & Plan (05/13/2015 10:20 AM RAMP SERVICE AGENT): Assessment: Vivian is admitted due to increased aggression at home. Due to his size and aggressive behaviors, Vivian requires residential housing. He does not meet criteria for inpatient psychiatric admission. Inbound Call Center Agent is involved and their input is appreciated. Plan: - Await word on placement opportunities - Attending physician Dr Menendez has reached out to [facility] administration for assistance Assessment & Plan (05/12/2015 3:36 PM RAMP SERVICE AGENT): Assessment: Vivian is admitted due to increased aggression at home. Due to his size and aggressive behaviors, Vivian requires residential housing. He does not meet criteria for inpatient psychiatric admission. Inbound Call Center Agent is involved and their input is appreciated. Plan: - Await word on placement opportunities - I have reached out to [facility] administration for assistance Assessment & Plan (05/12/2015 9:55 AM RAMP SERVICE AGENT): Assessment: 15 yo male with known autism spectrum disorder presents with increased aggression. Family fearful for safety at home and patient unable to be admitted to inpatient psychiatric facility or to [facility] at this time (please see notes from Yoselin George). Patient admitted to [facility] due to safety concerns of family and no available facility to offer adequate patient care available. Plan: - Appreciate Inbound Call Center Agent consult - Appreciate Psychiatry consult Assessment & Plan (05/11/2015 3:14 PM RAMP SERVICE AGENT): Assessment: 15 yo male with known autism spectrum disorder presents with increased aggression. Family fearful for safety at home and patient unable to be admitted to inpatient psychiatric facility or to [facility] at this time (please see notes from Yoselin George). Patient admitted to [facility] due to safety concerns of family and no available facility to offer adequate patient care available. Plan: - Will touch base with Central Intake today to discuss further placement options - Appreciate Inbound Call Center Agent consult - Appreciate Psychiatry consult Assessment & Plan (05/11/2015 1:09 PM RAMP SERVICE AGENT): Assessment: 15 yo male with known autism spectrum disorder presents with increased aggression. Family fearful for safety at home and patient unable to be admitted to inpatient psychiatric facility or to [facility] at this time (please see notes from Yoselin George). Patient admitted to [facility] due to safety concerns of family and no available facility to offer adequate patient care available. Plan: - Will touch base with Central Intake today to discuss further placement options - Appreciate Inbound Call Center Agent consult - Appreciate Psychiatry consult Assessment & Plan (05/10/2015 1:37 PM RAMP SERVICE AGENT): Assessment: 15 yo male with known autism spectrum disorder presents with increased aggression. Family fearful for safety at home and patient unable to be admitted to inpatient psychiatric facility or to [facility] at this time (please see notes from Yoselin George). Patient admitted to [facility] overnight due to safety concerns of family and no available facility to offer adequate patient care available. Plan: - Will touch base with Central Intake today to discuss further placement options - Appreciate Inbound Call Center Agent consult - Appreciate Psychiatry consult Assessment & Plan (05/10/2015 12:21 PM RAMP SERVICE AGENT): Assessment: 15 yo male with known autism spectrum disorder presents with increased aggression. Family fearful for safety at home and patient unable to be admitted to inpatient psychiatric facility or to [facility] at this time (please see notes from Yoselin George). Patient admitted to [facility] overnight due to safety concerns of family and no available facility to offer adequate patient care available. Plan: - Will touch base with Central Intake today to discuss further placement options - Appreciate Inbound Call Center Agent consult - Appreciate Psychiatry consult Assessment & Plan (05/09/2015 8:35 PM RAMP SERVICE AGENT): Assessment: 15 yo male with known autism spectrum disorder presents with increased aggression. Family fearful for safety at home and patient unable to be admitted to inpatient psychiatric facility or to [facility] at this time (please see notes from Yoselin George). Patient admitted to [facility] overnight due to safety concerns of family and no available facility to offer adequate patient care available. Plan: - Rain Mendoza (Social Work) to be in touch with [facility] to clarify insurance issues as well as what medical assessments are needed for placement - Appreciate Psychiatry consult Assessment & Plan (05/09/2015 11:57 AM RAMP SERVICE AGENT): Assessment: 15 yo male with known autism spectrum disorder presents with increased aggression. Family fearful for safety at home and patient unable to be admitted to inpatient psychiatric facility or to [facility] at this time (please see notes from Yoselin George). Patient admitted to [facility] overnight due to safety concerns of family and no available facility to offer adequate patient care available. Plan: - Rain Mendoza (Social Work) to be in touch with [facility] to clarify insurance issues as well as what medical assessments are needed for placement - Psychiatry consult Assessment & Plan (05/08/2015 10:07 PM RAMP SERVICE AGENT): Assessment: 15 yo male with known autism spectrum disorder presents with increased aggression. Family fearful for safety at home and patient unable to be admitted to inpatient psychiatric facility or to [facility] residential [facility] at this time (please see notes from Yoselin George). Patient admitted to [facility] overnight due to safety concerns of family and no available facility to offer adequate patient care available. Plan: - Call [facility] in the morning ([phone]) to ask for clarification on requirement for psychiatric evaluation - Consult to psychiatry for evaluation Aggression 05/08/2015 Overview (06/05/2015): SW to continue to find residential placement appropriate to pt's special needs. Assessment & Plan (06/05/2015 5:08 PM RAMP SERVICE AGENT): Assessment: 15 yo non verbal autistic male here for aggressive behavior for the past month. Recent change of medication from abilify to risperidal, and family moved in with maternal grandparents, no other changes in daily routine. Currently no more episodes of aggression. Having difficulty with placement and social work assisting. He is not a candidate to go back home. Psycological Eval and Medical History forms required for placement. Psych would like to increase Risperdal with prns for agitation Plan: - Regular diet - Increase Risperdal 1mg BID - Haloperidol 5mg IM if agitation and/or Zyprexa 5mg IM q6hr prn; Cogentin prn for dystonia - SW consult: Psychological consult ordered and called, no answer; complete medical paperwork and await further placement Assessment & Plan (06/04/2015 2:42 PM RAMP SERVICE AGENT): Assessment: 15 yo non verbal autistic male here for aggressive behavior for the past month. Recent change of medication from abilify to risperidal, and family moved in with maternal grandparents, no other changes in daily routine. Recently admitted for [facility] for similar behavior but was discharged two weeks ago. Plan: - Regular diet - Continue home Risperidone - Haloperidol IM if agitation - SW consult: pt can be accepted up to 5 long-term care facilities for autistic pts, however, at this time, pt is awaiting acceptance and then funding will be next issue. - Central intake evaluation: will reassess pt this afternoon (pt was asleep during previous CI assessment). - Psych consult for psych placement. Paged/called Dr. Fonseca several times, no response. Assessment & Plan (06/04/2015 4:06 AM RAMP SERVICE AGENT): Assessment: 15 yo non verbal autistic male here for aggressive behavior for the past month. Recent change of medication from abilify to risperidal, and family moved in with maternal grandparents, no other changes in daily routine. Recently admitted for [facility] for similar behavior. Plan: - Admit to [facility] - Regular diet - Risperidone - Haloperidol IM if agitation - SW consult - CI to evaluate Assessment & Plan (05/14/2015 7:46 AM RAMP SERVICE AGENT): Assessment: Vivian has autism spectrum disorder. He is admitted for aggressive behaviors at home prior to admission. He continues to do well with no outbursts during this admission. Plan: - 1 mg risperidone QD - Per Dr Fonseca, for acute aggression can use the following regimens: - Zyprexa 5 mg PO/IM q6h prn OR Haldol 5 mg PO/IM q6h prn and Ativan 1 mg PO/IM/IV q6h prn - Do not give ativan with zyprexa due to risk for hypotension - If giving Haldol, give 1 mg Cogentin PO BID prn for dystonia Assessment & Plan (05/13/2015 10:25 AM RAMP SERVICE AGENT): Assessment: Vivian has autism spectrum disorder. He is admitted for aggressive behaviors at home prior to admission. He continues to do well with no outbursts during this admission. Plan: - 1 mg risperidone QD - Per Dr Fonseca, for acute aggression can use the following regimens: - Zyprexa 5 mg PO/IM q6h prn OR Haldol 5 mg PO/IM q6h prn and Ativan 1 mg PO/IM/IV q6h prn - Do not give ativan with zyprexa due to risk for hypotension - If giving Haldol, give 1 mg Cogentin PO BID prn for dystonia Assessment & Plan (05/13/2015 10:20 AM RAMP SERVICE AGENT): Assessment: Vivian has autism spectrum disorder. He is admitted for aggressive behaviors. He continues to do well with no outbursts during this admission. Plan: - 1 mg risperidone QD - Per Dr Fonseca, for acute aggression can use the following regimens: - Zyprexa 5 mg PO/IM q6h prn OR Haldol 5 mg PO/IM q6h prn and Ativan 1 mg PO/IM/IV q6h prn - Do not give ativan with zyprexa due to risk for hypotension - If giving Haldol, give 1 mg Cogentin PO BID prn for dystonia Assessment & Plan (05/12/2015 3:37 PM RAMP SERVICE AGENT): Assessment: Vivian has autism spectrum disorder. He is admitted for aggressive behaviors. He continues to do well with no outbursts during this admission. Plan: - 1 mg risperidone QD - Per Dr Fonseca, for acute aggression can use the following regimens: - Zyprexa 5 mg PO/IM q6h prn OR Haldol 5 mg PO/IM q6h prn and Ativan 1 mg PO/IM/IV q6h prn - Do not give ativan with zyprexa due to risk for hypotension - If giving Haldol, give 1 mg Cogentin PO BID prn for dystonia Assessment & Plan (05/12/2015 9:55 AM RAMP SERVICE AGENT): Assessment: 15 yo patient with increased aggressive outbursts secondary to autism spectrum disorder. Recently started on risperidone by PCP however mother unsure of dose. 1 mg daily ordered after discussion with patient's PCP (Dr Maldonado) who manages his autism. PRN Risperdone also started for agitation, though patient has been very cooperative in hospital and has not required it. Plan: - 1 mg risperidone QD - Per Dr Fonseca, for acute aggression can use the following regimens: - Zyprexa 5 mg PO/IM q6h prn OR Haldol 5 mg PO/IM q6h prn and Ativan 1 mg PO/IM/IV q6h prn - Do not give ativan with zyprexa due to risk for hypotension - If giving Haldol, give 1 mg Cogentin PO BID prn for dystonia Assessment & Plan (05/11/2015 3:16 PM RAMP SERVICE AGENT): Assessment: 15 yo patient with increased aggressive outbursts secondary to autism spectrum disorder. Recently started on risperidone by PCP however mother unsure of dose. 1 mg daily ordered after discussion with patient's PCP (Dr Maldonado) who manages his autism. PRN Risperdone also started for agitation, though patient has been very cooperative in hospital and has not required it. Plan: - 1 mg risperidone QD - Per Dr Fonseca, for acute aggression can use the following regimens: - Zyprexa 5 mg PO/IM q6h prn OR Haldol 5 mg PO/IM q6h prn and Ativan 1 mg PO/IM/IV q6h prn - Do not give ativan with zyprexa due to risk for hypotension - If giving Haldol, give 1 mg Cogentin PO BID prn for dystonia Assessment & Plan (05/11/2015 1:08 PM RAMP SERVICE AGENT): Assessment: 15 yo patient with increased aggressive outbursts secondary to autism spectrum disorder. Recently started on risperidone by PCP however mother unsure of dose. 1 mg daily ordered after discussion with patient's PCP (Dr Maldonado) who manages his autism. PRN Risperdone also started for agitation, though patient has been very cooperative in hospital and has not required it. Plan: - 1 mg risperidone OD - Per Dr Fonseca, for acute aggression can use the following regimens: - Zyprexa 5 mg PO/IM q6h prn OR Haldol 5 mg PO/IM q6h prn and Ativan 1 mg PO/IM/IV q6h prn - Do not give ativan with zyprexa due to risk for hypotension - If giving Haldol, give 1 mg Cogentin PO BID prn for dystonia Assessment & Plan (05/10/2015 1:37 PM RAMP SERVICE AGENT): Assessment: 15 yo patient with increased aggressive outbursts secondary to autism spectrum disorder. Recently started on risperidone by PCP however mother unsure of dose. 1 mg daily ordered after discussion with patient's PCP (Dr Maldonado) who manages his autism. PRN Risperdone also started for agitation, though patient has been very cooperative in hospital and has not required it. Plan: - 1 mg risperidone OD - Per Dr Fonseca, for acute aggression can use the following regimens: - Zyprexa 5 mg PO/IM q6h prn OR Haldol 5 mg PO/IM q6h prn and Ativan 1 mg PO/IM/IV q6h prn - Do not give ativan with zyprexa due to risk for hypotension - If giving Haldol, give 1 mg Cogentin PO BID prn for dystonia Assessment & Plan (05/10/2015 12:20 PM RAMP SERVICE AGENT): Assessment: 15 yo patient with increased aggressive outbursts secondary to autism spectrum disorder. Recently started on risperidone by PCP however mother unsure of dose. 1 mg daily ordered after discussion with patient's PCP (Dr Maldonado) who manages his autism. PRN Risperdone also started for agitation, though patient has been very cooperative in hospital and has not required it. Plan: - 1 mg risperidone OD - Per Dr Fonseca, for acute aggression can use the following regimens: - Zyprexa 5 mg PO/IM q6h prn OR Haldol 5 mg PO/IM q6h prn and Ativan 1 mg PO/IM/IV q6h prn - Do not give ativan with zyprexa due to risk for hypotension - If giving Haldol, give 1 mg Cogentin PO BID prn for dystonia Assessment & Plan (05/09/2015 8:36 PM RAMP SERVICE AGENT): Assessment: 15 yo patient with increased aggressive outbursts secondary to autism spectrum disorder. Recently started on risperidone by PCP however mother unsure of dose. 1 mg daily ordered after discussion with patient's PCP (Dr Maldonado) who manages his autism. PRN Risperdone also started for agitation, though patient has been very cooperative in hospital and has not required it. Plan: - 1 mg risperidone OD - 5 mg olanzapine PRN for agitation while in hospital (no need to continue as outpatient unless on advice of psychiatry) Assessment & Plan (05/09/2015 11:58 AM RAMP SERVICE AGENT): Assessment: 15 yo patient with increased aggressive outbursts secondary to autism spectrum disorder. Recently started on risperidone by PCP however mother unsure of dose. 1 mg daily ordered after discussion with patient's PCP (Dr Maldonado) who manages his autism. PRN Risperdone also started for agitation, though patient has been very cooperative in hospital and has not required it. Plan: - 1 mg risperidone OD - 5 mg olanzapine PRN for agitation while in hospital (no need to continue as outpatient unless on advice of psychiatry) Assessment & Plan (05/08/2015 10:21 PM RAMP SERVICE AGENT): Assessment: 15 yo patient with increased aggressive outbursts secondary to autism spectrum disorder. Recently started on risperidone by PCP however mother unsure of dose. I spoke with Dr. Ochoa (on-call psychiatrist for Central Intake) who recommended starting at 1 mg BID of risperidone and 5 mg olanzapine PRN for agitation. I also spoke with PCP Dr. Maldonado (Photographer Assistant who manages Ory's ASD) who states the home dose of risperidone was 1 mg OD. I also noted on my exam that patient does not like to be touched and would gently push me away during exam. Plan: - 1 mg risperidone OD - 5 mg olanzapine PRN for agitation while in hospital (no need to continue as outpatient unless on advice of psychiatry) - Avoid physical contact with patient as much as possible during examinations. Prompt patient as much as possible to decrease any anxiety. - Call security if any concerns re: employee, visitor, or patient safety S/P PICC central line placement 03/01/2013 Pain 10/17/2010 Overview (11/06/2010): Through most of admission, posture was at least one leg flexed and minimal movement of R leg, and would not bear weight Likely due to osteopenia and possible compression fractures lumbar spine Pain improved, but not resolved, with Toradol. Attempted naproxen PO, but unable to treat with PO meds due to pt refusal, even with assistance of OT Resulted in Tylenol rectally, which did help with pain PT also worked with pt, which also resulted in some improvement Final decision was made to use Fentanyl patch 25mcg every 72 hours, and there was significant improvement in pt's symptoms, so he was discharged with total of 5 patches Osteopenia 10/17/2010 Overview (11/06/2010): History of very narrow diet choices (chocolate milk, cheezits) Diffuse process Abnormal metaphyses throughout. PTH low, but vit D, Ca, and phos WNL Endocrine consulted; per endocrine recs serum [id number] ordered, and pt will follow up in clinic Assessment & Plan (05/12/2015 9:56 AM RAMP SERVICE AGENT): Assessment: Patient has history of osteopenia with vertebral compression fractures. Admission in 2010 during which he was evaluated by neurology, orthopedics, heme/onc, rheumatology, genetics. No single diagnosis was ever given. He has since transferred his care to [facility] where a bone biopsy was done. Currently not on any medications, mom reports symptoms have improved since puberty. Per psychiatry, hypoparathyroidism has been known to cause mood swings. Calcium level and PTH level check this admission which are both normal. Plan: Follow up with [facility] next month as scheduled Assessment & Plan (05/11/2015 3:16 PM RAMP SERVICE AGENT): Assessment: Patient has history of osteopenia with vertebral compression fractures. Admission in 2010 during which he was evaluated by neurology, orthopedics, heme/onc, rheumatology, genetics. No single diagnosis was ever given. He has since transferred his care to [facility] where a bone biopsy was done. Currently not on any medications, mom reports symptoms have improved since puberty. Per psychiatry, hypoparathyroidism has been known to cause mood swings. Plan: - Calcium normal, PTH pending Assessment & Plan (05/11/2015 1:09 PM RAMP SERVICE AGENT): Assessment: Patient has history of osteopenia with vertebral compression fractures. Admission in 2010 during which he was evaluated by neurology, orthopedics, heme/onc, rheumatology, genetics. No single diagnosis was ever given. He has since transferred his care to [facility] where a bone biopsy was done. Currently not on any medications, mom reports symptoms have improved since puberty. Per psychiatry, hypoparathyroidism has been known to cause mood swings. Plan: - Calcium normal, PTH pending Assessment & Plan (05/10/2015 1:37 PM RAMP SERVICE AGENT): Assessment: Patient has history of osteopenia with vertebral compression fractures. Admission in 2010 during which he was evaluated by neurology, orthopedics, heme/onc, rheumatology, genetics. No single diagnosis was ever given. He has since transferred his care to [facility] where a bone biopsy was done. Currently not on any medications, mom reports symptoms have improved since puberty. Per psychiatry, hypoparathyroidism has been known to cause mood swings. Plan: Obtain total calcium, ionized calcium, and PTH level today Assessment & Plan (05/10/2015 12:22 PM RAMP SERVICE AGENT): Assessment: Patient has history of osteopenia with vertebral compression fractures. Admission in 2010 during which he was evaluated by neurology, orthopedics, heme/onc, rheumatology, genetics. No single diagnosis was ever given. He has since transferred his care to [facility] where a bone biopsy was done. Currently not on any medications, mom reports symptoms have improved since puberty. Per psychiatry, hypoparathyroidism has been known to cause mood swings. Plan: Obtain total calcium, ionized calcium, and PTH level today Assessment & Plan (05/09/2015 8:36 PM RAMP SERVICE AGENT): Assessment: Patient has history of osteopenia with vertebral compression fractures. Admission in 2010 during which he was evaluated by neurology, orthopedics, heme/onc, rheumatology, genetics. No single diagnosis was ever given. He has since transferred his care to [facility] where a bone biopsy was done. Currently not on any medications, mom reports symptoms have improved since puberty. Plan: Will obtain records from [facility] to determine if any intervention or workup necessary during this admission Assessment & Plan (05/09/2015 2:42 PM RAMP SERVICE AGENT): Assessment: Patient has history of osteopenia with vertebral compression fractures. Admission in 2010 during which he was evaluated by neurology, orthopedics, heme/onc, rheumatology, genetics. No single diagnosis was ever given. He has since transferred his care to [facility] where a bone biopsy was done. Currently not on any medications, mom reports symptoms have improved since puberty. Plan: Will obtain records from [facility] to determine if any intervention or workup necessary during this admission Hypoparathyroidism 10/16/2010 Overview (11/06/2010): Decreased PTH, still with normal phos and Ca levels PTH related peptide ordered Etiology unclear Endocrine consulted and will follow up as outpt Microcytosis 10/16/2010 Overview (10/16/2010): Likely due to chronic disease, as CBC is otherwise normal Acute sinusitis 10/12/2010 Overview (11/06/2010): Ethmoid and frontal sinuses show evidence of sinusitis on skeletal survey Not likely related to gait abnormality ENT consulted and involved, will follow up as outpatient Recommend CT sinuses with STEALTH process Tooth fracture 10/09/2010 Overview (11/06/2010): Tooth fractured during sedation. Prior tooth decay present. Root in place, no significant changes Dr. Rodriguez notified and involved but was unable to perform repair Should follow-up with dentist as outpatient for repair Nutritional assessment 10/09/2010 Overview (11/06/2010): Poor nutrition due to food selection and overall poor PO intake Prefers chocolate milk, sometimes ate grilled cheese. Nutrition and OT consulted and were able to help pt eat a more advanced diet, although still not normal for child of his age Continue vitamin supplement at discharge Gait abnormality 10/08/2010 Overview (11/06/2010): Patient with progressive loss of mobility. Started with wide-based gait and c/o hip pain in August that evolved into bilat LE pain and inability to bear weight with preference for a flexed position. No spasticity or muscle wasting noted. No sensory changes reported. Throughout admission, there was very little change in his clinical status, and he was never fully ambulatory. Imaging performed during admission: -Thoracic spine xray: Osteopenia with compression deformities of T11 and T12. -Lumbar spine xray: Diffuse loss of vertebral body height suggesting chronic compression deformities with osteopenia. -Brain MRI normal -MRI spine reveals cystic degenerative changes and ballooning of the intervertebral disc spaces -Whole body bone scan showed asymmetry in the left acetabulum of unknown etiology, but normal spine -Skeletal survey shows diffuse osteopenia with multiple vertebral body compression fractures, at least one lytic lesion involving the sacrum as well as the proximal right humerus and proximal right femur. Interpreted as possible infiltrative bone marrow process. -PET scan unremarkable -All services declined to do any sort of biopsy during admission due to difficulty and lack of utility Consults during admission: -Neurology consulted. Does not appear to be primary neurologic cause -Ortho Onc consulted. Do not see evidence of tumor or lytic process. Does have vertebral and possible disc abnormalities. Widespread osteopenia with abnormal metaphyseal regions. Ortho peds consulted. Agree with widespread osteopenia and metaphyseal changes -Rheumatology consulted; multiple labs drawn and have made recs and have impression that rheumatologic process is not likely based on results -Heme/Onc consulted and have impression that metastatic process is possible but not likely, as there is no known primary tumor. Lab abnormalities can be accounted for based on other clinical aspects of pt's condition. To fully evaluate for any primary tumor, PET scan was suggested as best imaging modality, which was unremarkable, confirming that a metastasis is unlikely the concern. -Genetics involved and have made recs for testing, no genetic syndrome that would account for pt's current gait abnormality. Multiple labs drawn for various services but abnormalities inconsistent with one probable diagnosis: CK not elevated, CRP normal, ESR somewhat elevated (43) Vit D, 25-OH normal LDH, Phos, and uric acid all normal Autoimmune and complement panels done, all normal Parathyroid hormone low TSH/T4 normal CMP showed low alk phos, otherwise normal CBC with microcytosis, otherwise normal; Hgb electrophoresis normal Low iron, but normal transferrin, ferritin, and TIBC IgG elevated, normal IgA and IgM Alpha-2, beta, and gamma globulins all elevated Aldolase elevated PT/PTT/INR WNL EBV panel negative Hepatitis panel negative Urine VMA 2.4, HVA 3.7 PT consulted for strengthening and ROM (Latanya Mckeon, [phone]) After discharge, pt to go to [facility] for outpatient PT Multiple follow-up appointments with various services including Rheumatology to discuss lab results, Endocrine, Genetics Encounters Date Type Department Care Team Description 07/26/2024 1:43 PM CDT - 07/26/2024 11:59 PM CDT Hospital Encounter [facility] CAT SCAN [address] [place] [address] Navdeep Raphael MD Discharge Disposition: Home or Self Care 07/26/2024 Travel 07/05/2024 9:30 AM RAMP SERVICE AGENT Office Visit [facility] [address] [place] [address] Navdeep Raphael MD Chronic rhinitis (Primary Dx); Chronic pansinusitis; Nasal congestion; Nasal obstruction; Nasal discharge; Deviated septum; Nasal polyps; Nasal turbinate hypertrophy 07/05/2024 Travel from Last 3 Months Immunizations Immunization Administration Dates Next Due DTaP VACCINE IM (6wk-6yrs) 02/13/2004,,1998,1998,1998 HEP B VACCINE, ADULT 3 DOSE 1998, 8,1998 HIB VACCINE 11/26/1999,199 9,1998,1998 INFLUENZA VACCINE 03/02/2013 INFLUENZA VACCINE, QUADR. (F LUZONE; FLULAVAL; FLUARIX; AFLURIA QUADRIVALENT; 6MO+), 0.5 ML (IIV4) 05/14/2015 MMR 02/13/2004,06/19/1999 POLIO IPV 1998,1998,1998 POLIO OPV 02/13/2004 TDAP (7yrs+) 03/02/2013 VARICELLA 10/11/2002 Family History Medical History Relation Name Comments Hearing Loss - Sensorineural Brother Cancer Maternal Grandfather Prostat e Type 1 Diabetes Mellitus Other Cousin Fabiola roblastoma ( age 2) Relation Name Status Comments Brother Maternal Grandfather Other Cousin Alive Social History Tobacco Use Types Packs/Day Years Used Date Smoking Tobacco: Never Smokeless Tobacco: Never Alcohol Use Standard Drinks/Week Comments No 0 (1 standard drink = 0.6 oz pur e alcohol) Sex and Gender Information Value Date Recorded Sex Assigned at Male 06/13/2024 3:18 PM RAMP SERVICE AGENT Legal Sex Male 5:40 AM RAMP SERVICE AGENT Gender Identity Male 06/13/2024 3:18 PM RAMP SERVICE AGENT Sexual Orientation Straight 06/13/2024 3: 29 PM RAMP SERVICE AGENT Last Filed Vital Signs Vital Sign Reading Time Taken Comments Blood Pressure 136/84 07/05/2024 9:21 AM RAMP SERVICE AGENT Pulse 102 07/05/2024 9:21 AM RAMP SERVICE AGENT Temperature 36.4 C (97.6 F) 06/06/2015 8:55 AM RAMP SERVICE AGENT Respiratory Rate 16 06/06/2015 8:55 AM RAMP SERVICE AGENT Oxygen Saturation 99% 06/04/2015 3:30 AM RAMP SERVICE AGENT Inhaled Oxygen Concentration 100% 10/09/2010 1 0:10 AM CDT Weight 144.2 kg (318 lb) 07/05/2024 9:21 AM RAMP SERVICE AGENT Height 175.3 cm (5' 9 ) 07/05/2024 9:21 AM RAMP SERVICE AGENT Body Mass Index 46.96 07/05/2024 9:21 AM RAMP SERVICE AGENT Plan of Treatment Health Maintenance Due Date Last Done Comments HIV SCREENING 2013 HPV VACCINE (1 - Male 3-dose series) 2013 DTAP/TDAP/TD VACCINES (7 - Td or Tdap) 03/02/2023 03/02/2013, 02/13/2004, 11/26/1999, Additional history exists COVID-19 VACCINE ( - season) 2024 DEPRESSION SCREENING 05/02/2024 INFLUENZA VACCINE (Season Ended) 2024 05/14/2015, 03/02/2013 ZOSTER VACCINE (1 of 2) 02/24/2048 HEPATITIS B VACCINE Completed 1998, 1998, 1998 HIB VACCINE Completed 11/26/1999, 12/01, 1998, Additional history exists HEPATITIS C SCREENING Completed 10/13/2010 MENINGOCOCCAL (Group B) VACCINE SHARED DECISION-MAKING Aged Out No longer eligible based on patient's age to complete this topic MENINGOCOCCAL GROUPS A/C/Y/W VACCINE Aged Out No longer eligible based on patient's age to complete this topic PNEUMOCOCCAL VACCINE Aged Out No long er eligible based on patient's age to complete this topic Procedures Procedure Name Priority Date/Time Associated Diagnosis Comments CT SINUS WO CONTRAST Routine 07/26/2024 1:53 PM CDT Chronic pansinusitis IN NASAL ENDOSCOPY,DX Routine 07/05/2024 10:26 AM RAMP SERVICE AGENT Chronic pansinusitis Nasal congestion Nasal obstruction Nasal discharge Deviated septum Nasal polyps Nasal turbinate hypertrophy HEPATITIS SCREEN ACUTE Routine 10/13/2010 4:00 PM CDT from Last 3 Months or Most Recently Relevant to Health Maintenance Results * CT Sinus Wo Contrast (07/26/2024 1:53 PM CDT) Anatomical Region Laterality Modality Head Computed Tomogra phy 07/27/2024 7:51 AM CDT Impressions 07/27/2024 10:27 AM CDT IMPRESSION: 1. There is acute on chronic pansinusitis, Bilateral maxillary antrostomy. Report was dictated by Rashaad Santos MD, ([facility] resident). I, Jose Manuel Conway MD have personally reviewed and interpreted this examination/study. > Interpreting Provider: Jose Manuel Conway MD on 07/27/2024 10:27 AM Narrative 07/27/2024 10:27 AM CDT PROCEDURE: CT SINUS WO CONTRAST, DATE/TIME OF EXAM: 07/26/2024 1:54 PM, LOCATION [facility] INDICATION: J32.4: Chronic pansinusitis ADDITIONAL CLINICAL INFORMATION: Ordering Provider Reason For Exam: Technologist Note: Additional: EXAMINATION: Computed tomography (CT) of the paranasal sinuses without contrast TECHNIQUE: CT of the paranasal sinuses was performed without contrast according to standard protocol. COMPARISON: No prior study is available for comparison at the time of this dictation. FINDINGS: Bilateral maxillary antrostomy changes. There is hypertrophy of the inferior nasal turbinates and middle nasal turbinates with obstruction of both nasal cavities and the posterior nasal apertures. No bone erosions. The right sphenoethmoidal recess is obstructed and there is narrowing of the left sphenoethmoidal recess. The frontal recesses are obstructed bilaterally. The nasal septum is in midline with hyperostosis of the osseous septum and pneumatization of the posterior nasal septum. Frontal sinuses: There is complete opacification of the right frontal sinus and partial opacification with air-fluid level left maxillary sinus with right greater than left frontal bone hyperostosis. Ethmoidal sinuses: There is near complete opacification of the anterior and posterior ethmoidal air cells with periosteal reaction and hyperostosis of the ethmoid bone. There is obstruction of the right sphenoethmoidal recess. Sphenoidal sinuses: There is partial opacification of the left greater than right sphenoidal sinuses and hyperostosis of the left sphenoid bone. There is a right sphenoethmoidal air cell (Onodi cell) Maxillary sinuses: There is near complete opacification of the right greater than left maxillary sinus with air-fluid levels and hyperostosis. The orbits including the globes, optic nerves, retrobulbar fat and extraocular muscles appear normal. The hard palate, mandible, and temporomandibular joints appear normal. There is near complete opacification of the bilateral mastoid air cells. There is partial opacification of the right middle ear cavity. Procedure Note Jose Manuel Conway MD - 07/27/2024 PROCEDURE: CT SINUS WO CONTRAST, DATE/TIME OF EXAM: 07/26/2024 1:54 PM, LOCATION [facility] INDICATION: J32.4: Chronic pansinusitis ADDITIONAL CLINICAL INFORMATION: Ordering Provider Reason For Exam: Technologist Note: Additional: EXAMINATION: Computed tomography (CT) of the paranasal sinuses without contrast TECHNIQUE: CT of the paranasal sinuses was performed without contrast according to standard protocol. COMPARISON: No prior study is available for comparison at the time ofthis dictation. FINDINGS: Bilateral maxillary antrostomy changes. There is hypertrophy of the inferior nasal turbinates and middle nasal turbinates with obstructionof both nasal cavities and the posterior nasal apertures. No bone erosions. The right sphenoethmoidal recess is obstructed andthere is narrowing of the left sphenoethmoidal recess. The frontal recessesare obstructed bilaterally. The nasal septum is in midline with hyperostosisof the osseous septum and pneumatization of the posterior nasal septum. Frontal sinuses: There is complete opacification of the right frontalsinus and partial opacification with air-fluid level left maxillary sinus with right greater than left frontal bone hyperostosis. Ethmoidal sinuses: There is near complete opacification of the anteriorand posterior ethmoidal air cells with periosteal reaction and hyperostosisof the ethmoid bone. There is obstruction of the right sphenoethmoidalrecess. Sphenoidal sinuses: There is partial opacification of the left greaterthan right sphenoidal sinuses and hyperostosis of the left sphenoid bone.There is a right sphenoethmoidal air cell (Onodi cell) Maxillary sinuses: There is near complete opacification of the right greater than left maxillary sinus with air-fluid levels andhyperostosis. The orbits including the globes, optic nerves, retrobulbar fat and extraocular muscles appear normal. The hard palate, mandible, and temporomandibular joints appear normal. There is near complete opacification of the bilateral mastoid air cells. There is partial opacification of the right middle ear cavity. IMPRESSION: 1. There is acute on chronic pansinusitis, Bilateral maxillary antrostomy. Report was dictated by Rashaad Santos MD, ([facility] resident). I, Jose Manuel Conway MD have personally reviewed and interpreted this examination/study. > Interpreting Provider: Jose Manuel Conway MD on 07/27/2024 10:27 AM us Navdeep Raphael MD CT ORDERABLES Final Resu lt * IN NASAL ENDOSCOPY,DX (07/05/2024 10:26 AM RAMP SERVICE AGENT) Narrative Navdeep Raphael MD - 07/05/2024 10:26 AM RAMP SERVICE AGENT Navdeep Raphael MD 07/05/2024 10:30 AM Due to the findings on physical examination, in correlation with the patient's symptomatology, the decision was made to perform a procedure today in clinic. Verbal consent obtained prior to starting procedure. Procedure note: Procedure: Rigid Nasal Endoscopy Pre Op Dx: Nasal secretions Post Op: same Anesthesia: Bilateral Nasal Cavities sprayed with Lidocaine and Neosynephrine Detail: Rigid nasal endoscopy performed bilaterally. Note: SEVERE polyps bilaterally. 100% obstruction of bilateral nasal cavities. Septum deviated superiorly. Right interior nasal cavity showed turbinate hypertrophy, mucus stranding present. Right middle and superior meatus show pink mucosa with mucus stranding present. Sphenoethmoidal recess inspected showing mucus stranding, intact mucosa. Left interior nasal cavity showed turbinate hypertrophy, mucus stranding present. Left middle and superior meatus show pink mucosa with mucus stranding present. Sphenoethmoidal recess inspected showing mucus stranding, intact mucosa. us Navdeep Raphael MD PROCEDURE/MINOR SURGICAL O RDERABLES Final Result * HEPATITIS SCREEN ACUTE (10/13/2010 4:00 PM CDT) Hepatitis A Virus Antibody IgM Non-reactive Non-react franci [facility] Hepatitis B Virus Surface Antigen Non-reactive Non-react franci [facility] Hepatitis B Core Virus Antibody IgM Non reactive Non-React franci [facility] Hepatitis C Antibody Screen Non-reactive Non-react franci [facility] Disclaimer HCV Nonreactive - Antibodies to HCV were not detected, result does not exclude early acute HCV infection. [facility] BLOOD SPECIMEN / Unknown 10/13/2010 4:00 PM CDT 10/13/2010 4:36 PM CDT us Bria Henning MD LAB - CHEMISTRY ORDERABLES Final Result Performing Organization Address City/State/[facility] [place] de Phone Number [facility] [address] [place] [address] from Last 3 Months or Most Recently Relevant to Health Maintenance Insurance [facility] * Guarantor: FRANCIS VALENZUELA Account Type Relation to Patient Date of Phone Billing Address [facility] Mother [id number] [place] [address] * Faina [id number]|2024-09-15 12:56:09|2024-09-15 12:56:09|ED.[email or web address]||||"HPI - Eye Problem General Chief complaint: Eye Problems Stated complaint: wood shavings in eye Time Seen by Provider: 09/15/24 12:41 Source: patient Mode of arrival: ambulatory Limitations: no limitations History of Present Illness HPI Narrative: patient was cutting trees, possible piece of wood in the right eye, possible left eye to but not at the same effect at the right 1. Prior to arrival. Related Data Allergies Allergy/AdvReac Type Severity Reaction Status Date / Time amoxicillin Allergy Severe Anxiety Verified 09/15/24 12:39 CILANTRO Allergy Mild Itching Verified 09/15/24 12:39 Review of Systems Review of Systems: All systems reviewed & are unremarkable except as noted in HPI and below PMFSH Past Medical History Medical History Cellulitis of chin No active medical problems Surgical History Surgical History No pertinent past surgical history Family History Family History Father Acute myocardial infarction Other Hypertension Social History Social History Smoking status: Current every day smoker Tobacco type: cigarettes and e-cigarettes/vaping Alcohol intake: never Substance use: former Substance use type: marijuana Do You Feel Safe in your Home?: Yes Lack of Transportation: No Lack of Food: Never True Current Housing: I Have Housing Concerned About Future Housing: No Difficulty Paying Gas/Electric Bills: No Difficulty Paying for Meds: No Currently Unemployed: No Difficulty w/ Childcare or Family Care: No Living arrangements: with family Gender identity (if verbalized by the patient): Male Exam Narrative: General appearance: Well-developed, well-nourished Skin: Normal color Head: Normocephalic, nontraumatic Eyes: Clear conjunctiva, no congestion, no foreign body, pupils reactive to light and accommodation, no abnormalities Chest and respiratory: Airway patent, no respiratory distress, no accessory muscle use Heart: Regular rate/rhythm Abdomen: Soft, nontender, no organomegaly, quiet bowel sounds Neurologic: Alert and oriented ×3, TOOL ROOM LATHE OPERATOR is normal as tested, no gross motor deficit Course Vital Signs Vital signs: Vital Signs Temperature 36.6 C 09/15/24 12:33 Pulse Rate 86 09/15/24 12:33 Respiratory Rate 20 09/15/24 12:33 Blood Pressure 149/85 H 09/15/24 12:33 Pulse Oximetry 100 09/15/24 12:33 Oxygen Delivery Room Air 09/15/24 12:33 Temperature 36.6 C 09/15/24 12:33 Pulse Rate 86 09/15/24 12:33 Respiratory Rate 20 09/15/24 12:33 Blood Pressure 149/85 H 09/15/24 12:33 Pulse Oximetry 100 09/15/24 12:33 Oxygen Delivery Room Air 09/15/24 12:33 Procedures FB Removal Eye Foreign Body #1: Foreign Body Removal Date: 09/15/24 Foreign Body Removal Time: 13:14 Time Out performed: Yes ( 5 minutes) Location: eye (L) and eye (R) Topical anesthetic used: tetracaine Foreign body: other ( no foreign body) Evidence of corneal penetration: No Technique: irrigation Procedure performed under: direct visualization with magnification Post-procedure medication: topical anesthetic Patient tolerated procedure: well Foreign Body Removal Narrative: tetracaine eyedrops, fluorescent stain, no foreign body, no corneal abrasion, scratch of the right upper eyelid is a possibility. Right eye irrigation, blurry vision his gun, patient became much better prior to discharge on erythromycin eye ointment MDM - Eye Problem MDM Narrative Medical decision making narrative: eye exam showed no significant abnormalities, Tetracaine eyedrops, fluorescent dye showed no abrasions or foreign body. Right eye irrigation, patient feel better, new Discharged on erythromycin ophthalmic ointment Critical Care Time Critical Care Time Critical Care Time: No Discharge Plan Discharge Clinical Impression: Eye abrasion Patient Disposition: Home Condition: Stable Instructions: How to Use Eye Drops (ED), Eye Foreign Body (ED) Additional Instructions: Return if symptoms are worsening , call your family physician for appointment, take Tylenol as as needed for aches and pain, continue home medications. Patient Language: Tanzanian Prescriptions: New erythromycin 5 mg/gram (0.5 %) ointment 0.5 inch ophthalmic (eye) QID Qty: 1 0RF No Action ondansetron 4 mg tablet,disintegrating 4 mg PO Q4H PRN (Reason: nausea and vomiting) 3 Days Qty: 10 0RF Follow-up/Referrals: Aurelia Platt ADVERTISING COORDINATOR [Primary Care Provider] - "
[2024-09-15 10:03] LABS: Basophils Absolute Auto 0.06 K/mm3 (0.00-0.10); Basophils Percent Auto 0.5 % (0.0-1.0); Eosinophils Absolute Auto 0.26 K/mm3 (0.02-0.50); Eosinophils Percent Auto 2.2 % (1.0-6.0); Hematocrit 45.3 % (40.0-54.0); Hemoglobin 14.6 g/dL (14.0-18.0); Immature Granulocyte Absolute 0.11 K/mm3 (0.00-0.00); Immature Granulocyte Percent A 0.9 % (0.0-0.0); Lymphocytes Absolute Auto 2.07 K/mm3 (1.10-4.50); Lymphocytes Percent Auto 17.2 % (18.0-42.0); Mean Corpuscular HGB Conc 32.2 g/dL (32-36); Mean Corpuscular Hemoglobin 27.2 pg (27.0-31.0); Mean Corpuscular Volume 84.5 fL (78.0-102.0); Mean Platelet Volume 10.5 fl (8.7-11.0); Neutrophils Absolute Auto 8.95 K/mm3 (1.70-7.20); Neutrophils Percent Auto 74.2 % (50.0-70.0); Platelet Count Result 280 K/mm3 (150-420); Red Blood Count 5.36 M/mm3 (4.70-6.10); Red Cell Distribution Width 14.3 % (11.6-14.4); White Blood Count 12.1 K/mm3 (4.8-10.8)
[2024-09-15 10:23] LABS: Alanine Aminotransferase 37 U/L (6-50); Albumin Level 4.2 g/dL (3.5-5.1); Alkaline Phosphatase 102 U/L (38-126); Anion Gap 6 mmol/L (4-12); Aspartate Amino Transferase 27 U/L (17-59); Bilirubin,Total 0.7 mg/dL (0.2-1.3); Blood Urea Nitrogen 7 mg/dL (9-20); Calcium 9.5 mg/dL (8.4-10.2); Carbon Dioxide 25 mmol/L (22-30); Chloride 105 mmol/L (98-107); Cholesterol 183 mg/dL (0-200); Estimated Glomerular Filt Rate > 60; Glucose 94 mg/dL (65-110); HDL Direct 41 mg/dL; Iron 62 ug/dL (49-181); LDL Cholesterol Calculated 113 mg/dL (<130); Osmolality Calculated 280 mOsm/kg (285-295); Potassium 4.3 mmol/L (3.4-5.0); Sodium 136 mmol/L (137-145); Total Protein 7.2 g/dL (6.3-8.2); Triglycerides 146 mg/dL (<150)
[2024-09-15 10:33] LABS: Percent Iron Saturation 21 % (20-50)
[2024-09-15 10:40] LABS: Free T4 Free Thyroxine 1.45 ng/dL (0.78-2.19)
== END 2024-09-15 09:40 | disposition home or self-care (01) ==
PROVIDERS: PCP Family Medicine; Visit Provider Family Medicine
DX: Z00.00 Encounter for general adult medical examination without abnormal findings (principal); G47.33 Obstructive sleep apnea (adult) (pediatric); J30.1 Allergic rhinitis due to pollen; G47.36 Sleep related hypoventilation in conditions classified elsewhere; F84.9 Pervasive developmental disorder, unspecified; E66.01 Morbid (severe) obesity due to excess calories; D50.9 Iron deficiency anemia, unspecified
CPT/HCPCS: 36415; 80053; 80061; 83540; 83550; 84439; 84443; 85025